=== PATIENT | female | born 1945 | race Caucasian/White ===

== ENCOUNTER 2024-05-01 09:42 | Inpatient (IN) ==
--- NOTE | 2024-05-01 11:16 | Emergency Department Note ---
Impression & Plan Closed intertrochanteric fracture of left hip, Vertigo, Fracture in accidental fall ED Provider Note NAME: HOWARD COLLINS AGE: 78 SEX: F : 1945 ARRIVES VIA: Walk-In INFORMANT: Patient ED PROVIDER(S): uLther Gu MD CHIEF COMPLAINT: vertigo, n/v PLAN: Disposition: Admit MEDICAL DECISION MAKING: The patient is a pleasant 78-year-old woman with a past medical history of chronic/recurring vertigo, right ear tinnitus, hypertension, hyperlipidemia, remote history of meningioma resection, paroxysmal atrial fibrillation on Xarelto, MARY BETH who presents to the emergency department via walk-in accompanied by her for flare of vertigo over the past several weeks where she has experienced room spinning and nausea and vomiting which became worse today. She denies any falls. She reports having some loose stool but denies any frequent diarrhea. She denies any cough or congestion. She denies chest pain or shortness of breath. She denies any headache but has had flare of chronic neck pain over the same period of time. She denies any recent chiropractic manipulation or massage. On evaluation the patient is in no acute distress, afebrile with blood pressure in the 160s/80s and vital signs otherwise stable. She appears clinically dry. She exhibits unilateral horizontal nystagmus to the left. She otherwise exhibits no focal neurologic deficits. EKG without overt acute ischemia. CXR negative for acute cardiopulmonary process per my personal preliminary review/interpretation. WBC, H/H and platelets within normal limits. Chemistry without metabolic acidosis. Electrolytes and LFTs unremarkable. High-sensitivity troponin 4.1, within normal limits Respiratory BioFire was negative. CT of the head and CT of the head neck were performed and were negative for ICH ischemia or severe narrowing occlusion of large vessels. Patient was treated with IVF hydration, anti-emetics, as well as diphenhydramine and dexamethasone for vertigo/labyrinthitis. Unfortunately, following CT imaging the patient was using the bathroom, escorted by her RN. The patient had requested from RN warm blankets and in the brief interval she get these the patient had somehow fallen off of the toilet onto her left hip which appeared deformed on my reassessment with shortening. She reports numbness and tingling but has SILT. Distal PMS intact. Head is atraumatic. Denies Head strike or LOC. Neck without midline tenderness to palpation or step- offs. Plain films subsequently demonstrate acute left hip intertrochanteric fracture. Upon reassessment following improved pain control with Dilaudid patient did also exhibit some point tenderness of the left anterior chest wall without bony crepitus. Left rib series was negative for overt displaced fracture or PTX per my preliminary interpretation. Case was discussed with Dr. Segovia, admitting resident with Dr. Gonzalez, [facility] hospitalist who will evaluate the patient for admission. Case discussed with Dr. Coburn, orthopedic surgery. Plan for OR tomorrow morning. Appreciate consultation. Admitting team updated. Formal Rib series report describes subtle cortical irregularly with overtly present rib fracture. Further management per admitting team. Triage Nursing notes reviewed and agree them. Prior/external medical records reviewed Vital Signs: reviewed Differential diagnosis: Benign positional vertigo, dehydration, hypovolemia, anemia, tumor, infection, hypoglycemia, electrolyte abnormalities, cardiac sources, intracerebral event, toxicologic, neurologic, as well as other pathologies. ER treatment provided: See below. Diagnostics interpreted by me: ECG: Normal sinus rhythm, no ectopy, no overt ST elevation or depression. Cardiac Monitoring: An order for continuous cardiac monitoring was placed and demonstrated normal sinus rhythm, 83 bpm, no ectopy. Laboratory studies: See below Imaging studies: See below Consultation(s): Dr. Coburn, Orthopedic surgery. Dr. Segovia, admitting resident with Dr. Gonzalez, [facility] hospitalist. HPI: The patient is a pleasant 78-year-old woman with a past medical history of chronic/recurring vertigo, right ear tinnitus, hypertension, hyperlipidemia, remote history of meningioma resection, paroxysmal atrial fibrillation on Xarelto, MARY BETH who presents to the emergency department via walk-in accompanied by her for flare of vertigo over the past several weeks where she has experienced room spinning and nausea and vomiting which became worse today. She denies any falls. She reports having some loose stool but denies any frequent diarrhea. She denies any cough or congestion. She denies chest pain or shortness of breath. She denies any headache but has had flare of chronic neck pain over the same period of time. She denies any recent chiropractic manipulation or massage. ROS: See above HPI for pertinent positives & negatives. A total of 10 systems reviewed and were otherwise negative. VITALS:See Below PHYSICAL EXAMINATION: GENERAL: Awake, alert, fatigued-appearing, in no distress HENT: Normocephalic, atraumatic. Oropharynx with dry mucous membranes and otherwise unremarkable. EYES: Normal conjunctiva. Sclera non-icteric. Unilateral horizontal nystagmus to the left. NECK: Supple. No nuchal rigidity. FROM. No JVD. No bruits. RESPIRATORY: Clear to auscultation. CARDIAC: Regular rate, normal rhythm. Extremities warm and well perfused. Pulses equal. ABDOMEN: Soft, non-distended. No tenderness to palpation. No rebound or guarding. No masses. MUSCULOSKELETAL: Chest examination reveals no tenderness. The back is symmetrical on inspection without obvious abnormality. There is no CVA tenderness to palpation. No joint edema. LOWER EXTREMITIES: Calves are equal size bilaterally and non-tender. No edema. No discoloration. NEURO: Cranial nerves II-XII grossly intact. 5/5 strength and SILT x 4 extremities. Cerebellar function intact including [id number], alternating palms, [id number]. SKIN: No rash or jaundice noted. Luther Gu MD Past Med/Surg History Problem List (Updated 05/02/24 @ 07:06 by Luther Gu MD) Vertigo (Acute) Closed intertrochanteric fracture of left hip (Acute) Fracture in accidental fall (Acute) COVID-19 (Acute) Palpitations Sleep apnea Dyslipidemia Hypertension Syncope and collapse Medical History Anticoagulant long-term use Paroxysmal atrial fibrillation Factor V Leiden Recurrent deep vein thrombosis (DVT) Social History Smoking Status: Never smoker Hx Alcohol Use: No Hx Substance Use: No Preferred Language: Amharic Communication Ability: Effective Beliefs That Will Affect Care: None Current Living Situation: Spouse Feels Safe at Home: Yes Safety Concerns: Feels Safe At This Time Allergies Allergies Allergy/AdvReac Type Severity Reaction Status Date / Time bee venom protein (honey bee) Allergy Severe Anaphylaxis Verified 03/20/24 08:47 codeine AdvReac Abdominal Verified 05/02/24 05:10 Pain Home Meds Home Medications Medication Instructions Recorded Confirmed albuterol sulfate 90 mcg/actuation 2 puff inhalation Q6H PRN sob 11/11/23 05/01/24 aerosol inhaler atorvastatin 20 mg tablet 20 mg PO UD 11/11/23 05/01/24 cholecalciferol (vitamin D3) 10 10 mcg PO DAILY 11/11/23 05/01/24 mcg (400 unit) capsule coenzyme Q10 75 mg capsule (Ultra 75 mg PO DAILY 11/11/23 05/01/24 CoQ10) diazepam 5 mg tablet 5 mg PO BID PRN Vertigo 11/11/23 05/01/24 lorazepam 0.5 mg tablet 0.5 mg PO UD PRN Other 11/11/23 05/01/24 losartan 25 mg tablet 25 mg PO UD 11/11/23 05/01/24 mecobalamin (vitamin B12) 1,000 1,000 mcg PO DAILY 11/11/23 05/01/24 mcg lozenges omeprazole 20 mg capsule,delayed 20 mg PO DAILY 11/11/23 05/01/24 release rivaroxaban 20 mg tablet (Xarelto) 20 mg PO DAILY 11/11/23 05/01/24 zinc acetate 50 mg (zinc) capsule 50 mg PO DAILY 11/11/23 05/01/24 Previous Rx's Medication Instructions Recorded meclizine 12.5 mg tablet 12.5 mg PO TID PRN dizziness #20 01/26/24 tabs ondansetron 4 mg disintegrating 4 mg PO Q8H PRN nausea and 01/26/24 tablet vomiting #30 tabs Results & Data (ED) Vital Signs Vital Signs - 24 hr 05/01/24 10:16 05/01/24 11:40 05/01/24 13:27 Temperature 36.6 C Temperature Source Temporal Artery Scan Pulse Rate 65 Pulse Rate [Left Finger] 65 92 H Respiratory Rate 16 16 26 H Respiratory Effort / Characteristics Non-Labored Spontaneous Respiratory Depth Normal Respiratory Pattern Regular Blood Pressure 164/83 H Blood Pressure [Left Arm] 159/76 H 172/96 H Blood Pressure Mean 110 Blood Pressure Mean [Left Arm] 103 121 Blood Pressure Position [Left Arm] Pulse Oximetry 96 96 98 Oxygen Delivery Method Room Air Sepsis Recent Fever Within 48 Hours No Sepsis New/Unexplained Change in Mental Status No Sepsis Action Taken by Nursing No Action Required 05/01/24 15:10 Temperature Temperature Source Pulse Rate Pulse Rate [Left Finger] 62 Respiratory Rate 20 Respiratory Effort / Characteristics Respiratory Depth Respiratory Pattern Blood Pressure Blood Pressure [Left Arm] 176/80 H Blood Pressure Mean Blood Pressure Mean [Left Arm] 112 Blood Pressure Position [Left Arm] Lying Pulse Oximetry 94 Oxygen Delivery Method Sepsis Recent Fever Within 48 Hours Sepsis New/Unexplained Change in Mental Status Sepsis Action Taken by Nursing Laboratory Data Attestation: I reviewed the patient's lab results. 05/01/24 10:50 05/01/24 10:50 Lab Results 05/01/24 05/01/24 Range/Units 10:50 11:50 WBC 5.61 (4.8-10.8) K/ul RBC 4.69 (4.20-5.40) M/uL Hgb 13.3 (12.0-16.0) g/dl Hct 40.7 (37.0-47.0) % MCV 86.8 (80.0-100.0) fL MCH 28.4 (25.0-34.0) pg MCHC 32.7 (32.0-36.0) g/dL RDW Std Deviation 44.7 (36.4-46.3) fL RDW Coeff of Artemio 14.1 (11.5-14.5) % Plt Count 247 (130-400) K/uL MPV 10.0 (9.4-12.4) fL Immature Gran % (Auto) 0.4 % Neut % (Auto) 67.9 % Lymph % (Auto) 21.0 % [place] % (Auto) 9.1 % Eos % (Auto) 0.7 % Baso % (Auto) 0.9 % Neut # (Auto) 3.81 (1.40-6.50) K/uL Lymph # (Auto) 1.18 L (1.20-3.40) K/uL [place] # (Auto) 0.51 (0.11-0.59) K/uL Eos # (Auto) 0.04 (0.00-0.50) K/uL Baso # (Auto) 0.05 (0.00-0.20) K/uL Immature Gran # (Auto) 0.02 (0.01-0.20) K/uL PT 11.3 (9.0-12.0) Seconds INR 1.0 (0.9-1.1) APTT 32 H (21-31) Seconds PTT Ratio 1.2 Sodium 137 (136-145) mmol/L Potassium 4.0 (3.5-5.1) mmol/L Chloride 103 (98-107) mmol/L Carbon Dioxide 31 (21-32) mmol/L Anion Gap 3 (3-11) BUN 12 (6-23) mg/dl Creatinine 0.70 (0.6-1.2) mg/dl Est Cr Clr Drug Dosing 62.0 ml/min eGFR 87.37 BUN/Creatinine Ratio 17.1 (10-20) Glucose 97 (70-99(Fasting)) mg/dl Calcium 9.5 (8.6-10.3) mg/dl Phosphorus 4.2 (2.5-4.9) mg/dl Magnesium 2.0 (1.7-2.4) mg/dl Total Bilirubin 0.8 (0.2-1.0) mg/dl AST 13 (13-39) U/L ALT 11 (7-52) U/L Alkaline Phosphatase 89 (34-104) U/L Troponin I High Sens 4.1 (0-14) pg/ml Total Protein 6.5 (6.0-8.3) gm/dl Albumin 4.0 (3.4-5.0) gm/dl Globulin 2.5 (2.5-4.0) gm/dl Albumin/Globulin Ratio 1.6 (0.9-2) TSH 1.267 (0.300-4.500) uIu/ml Adenovirus (PCR) Not Detected (NotDetected) B. pertussis DNA (PCR) Not Detected (NotDetected) B.parapertussis DNA PCR Not Detected (NotDetected) C. pneumoniae DNA (PCR) Not Detected (NotDetected) Coronavirus OC43 (PCR) Not Detected (NotDetected) Coronavirus HKU1 (PCR) Not Detected (NotDetected) Coronavirus 229E (PCR) Not Detected (NotDetected) SARS-CoV-2 (PCR) Not Detected (NotDetected) Coronavirus NL63 (PCR) Not Detected (NotDetected) Human Metapneumovir PCR Not Detected (NotDetected) Influenza Type A (PCR) Not Detected (NotDetected) Influenza Type B (PCR) Not Detected (NotDetected) M. pneumoniae (PCR) Not Detected (NotDetected) Parainfluenza 1 (PCR) Not Detected (NotDetected) Parainfluenza 2 (PCR) Not Detected (NotDetected) Parainfluenza 3 (PCR) Not Detected (NotDetected) Parainfluenza 4 (PCR) Not Detected (NotDetected) RSV (PCR) Not Detected (NotDetected) Entero/Rhino (PCR) Not Detected (NotDetected) Administered Medications Hydromorphone HCl (Hydromorphone Inj 0.5 Mg/0.5 Ml Syr) 0.5 mg IV Q1H PRN PRN Reason: Severe Pain (Rating 7,8,9,10) Stop: 05/15/24 16:33 Last Admin: 05/02/24 05:10 Dose: 0.5 mg Documented By: Admin: 05/01/24 19:50 Dose: 0.5 mg Documented By: Admin: 05/01/24 16:46 Dose: 0.5 mg Documented By: DORINA Discontinued Medications Dexamethasone Sodium Phosphate (DexamethasonePf 10 Mg/Ml Vial) 10 mg IV NOW ONE Stop: 05/01/24 12:15 Last Admin: 05/01/24 12:41 Dose: 10 mg Documented By: ARNULFO Diphenhydramine HCl (Diphenhydramine 50 Mg/Ml Vial) 12.5 mg IV NOW STA Stop: 05/01/24 12:15 Last Admin: 05/01/24 12:41 Dose: 12.5 mg Documented By: ARNULFO Hydromorphone HCl (Hydromorphone Inj 0.5 Mg/0.5 Ml Syr) Confirm Administered Dose 0.5 mg .ROUTE .STK-MED ONE Stop: 05/01/24 13:43 Last Admin: 05/01/24 13:44 Dose: Not Given Documented By: Hydromorphone HCl (Hydromorphone Inj 0.5 Mg/0.5 Ml Syr) 0.5 mg IV NOW STA Stop: 05/01/24 13:43 Last Admin: 05/01/24 13:45 Dose: 0.5 mg Documented By: Sodium Chloride (Nss) 1,000 mls @ 999 mls/hr IV .Q1H1M ONE Stop: 05/01/24 12:14 Last Infusion: 05/01/24 12:48 Dose: Infused Documented By: Admin: 05/01/24 11:47 Dose: 999 mls/hr Documented By: ARNULFO Famotidine (Pepcid 20mg Iv Push) 20 mg in 5 mls @ 2.5 mls/min IV NOW STA Stop: 05/01/24 11:15 Last Admin: 05/01/24 11:47 Dose: 2.5 mls/min Documented By: ARNULFO Promethazine HCl (Phenergan) 6.25 mg in 50.25 mls @ 201 mls/hr IV NOW STA Stop: 05/01/24 12:28 Last Infusion: 05/01/24 12:58 Dose: Infused Documented By: Admin: 05/01/24 12:43 Dose: 201 mls/hr Documented By: ARNULFO Acetaminophen (Ofirmev) 1,000 mg in 100 mls @ 400 mls/hr IV NOW STA Stop: 05/01/24 12:30 Last Infusion: 05/01/24 13:41 Dose: Infused Documented By: Admin: 05/01/24 13:26 Dose: 400 mls/hr Documented By: ARNULFO Ioversol (Optiray 320 125ml) 121 ml IV ONCE ONE Stop: 05/01/24 12:49 Last Admin: 05/01/24 12:48 Dose: 121 ml Documented By: AUBREY Meclizine HCl (Meclizine Hcl 25 Mg Tab) 25 mg PO NOW STA Stop: 05/01/24 20:06 Last Admin: 05/01/24 20:12 Dose: 25 mg Documented By: DORINA Morphine Sulfate (Morphine Sulfate 4 Mg/Ml 1 Ml Carp\\Vial) Confirm Administered Dose 4 mg .ROUTE .STK-MED ONE Stop: 05/01/24 13:32 Last Admin: 05/01/24 13:44 Dose: Not Given Documented By: Morphine Sulfate (Morphine Sulfate 4 Mg/Ml 1 Ml Carp\\Vial) 4 mg IV NOW STA Stop: 05/01/24 13:33 Last Admin: 05/01/24 15:12 Dose: Not Given Documented By: ARNULFO Ondansetron HCl (Ondansetron Inj 2 Mg/Ml 2 Ml Vial) 4 mg IV NOW STA Stop: 05/01/24 11:15 Last Admin: 05/01/24 11:48 Dose: 4 mg Documented By: ARNULFO Imaging Data Radiologist's Impression: Ribs w/Chest X-Ray 05/01/24 15:52 EXAM: XR ribs LT min 2V w [id number] CLINICAL HISTORY: Pain fall TECHNIQUE: X-ray images of the left ribs were obtained in [PA/AP, lateral, and oblique projections] including chest AP view. COMPARISON: none. FINDINGS: Ribs: A subtle cortical irregularity is seen involving the left 5th rib, which could be an undisplaced fracture for correlation with clinical data. Two sclerotic lines are seen involving the left 10th rib for correlation with clinical data. Chest Wall: The soft tissues of the chest wall appear unremarkable. No evidence of subcutaneous emphysema or soft tissue masses. Lungs and Pleura: The lung ontiveros are clear with no evidence of pneumothorax or pleural effusion. No pulmonary infiltrates or masses identified. IMPRESSION: 1. A subtle cortical irregularity is seen involving the left 5th rib. Questionable undisplaced fracture for correlation with clinical data. 2. Two sclerotic lines are seen involving the left 10th rib for correlation with clinical data. (Disclaimer: "A subtle bone abnormality or fracture may not be readily apparent on x-rays, thus clinical correlation and further imaging including follow-up CT, MRI, or follow-up x-rays are advised as needed"). Electronically signed by Swetha Harmon 05-01-2024 7:00 PM Chest X-Ray 05/01/24 10:44 XR chest 1V not portable CLINICAL HISTORY: dizziness COMPARISON STUDY: 01/26/2024 FINDINGS: Heart size and pulmonary vasculature are normal. No effusion, consolidation, or pneumothorax. IMPRESSION: No acute findings. ACT 112: Negative or not required by law. Electronically signed by: Dejan Elizabeth M.D. 05/01/2024 11:[address] 05/01/24 12:16 CT OF THE HEAD WITHOUT CONTRAST CLINICAL HISTORY: Vertigo. COMPARISON STUDY: Head CT January 26, 2024. TECHNIQUE: Helical axial images of the head were obtained without IV contrast. Automated exposure control was utilized for the study. A dose lowering technique was utilized adhering to the principles of ALARA. FINDINGS: No acute intracranial hemorrhage, midline shift or mass effect is present. The ventricular system is unremarkable. The basal cisterns are patent. No extra-axial collections are present. There are no findings to suggest acute dural sinus thrombosis or acute territorial infarct. Stable findings following the left occipital craniectomy. Encephalomalacia within the left cerebellar hemisphere is unchanged. The appearance of the brain is unchanged. IMPRESSION: No acute intracranial findings. No change in appearance of the brain. ACT 112: Negative or not required by law. Electronically signed by: Pelon Gay M.D. 05/01/2024 1:12 PM Head CTA 05/01/24 12:16 CT angio head w con, CT angio neck with con CLINICAL HISTORY: 78 years-old Female with vertigo. Acute vertigo with strokelike symptoms, nausea and vomiting COMPARISON STUDY: Head CT of same day and also 01/26/2024. TECHNIQUE: Following the IV administration of 121 cc of Optiray, CT angiogram of the head and neck was performed from the aortic arch to the skull apex. Images are reviewed in the axial, sagittal, and coronal planes. 3-D MIPS images are created and assessed. IV contrast was administered without complication. All measurements were obtained according to NASCET criteria. A dose lowering technique was utilized adhering to the principles of ALARA. CT DOSE: 1105.96 mGy.cm FINDINGS: CT BRAIN: Dictated separately. 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 Chronic lucent focus of the left parietal calvarium. CT ANGIOGRAM OF THE HEAD AND NECK: Three-vessel morphology of the thoracic aortic arch. Patency of the innominate and image subclavian arteries. The common carotid arteries are patent. Atherosclerosis of the carotid bulbs without significant stenosis. Imaged bilateral internal carotid arteries are patent. The bilateral anterior and middle cerebral arteries are also patent. The vertebrobasilar system and posterior cerebral arteries are widely patent. There is no aneurysm, high-grade stenosis, or proximal branch occlusion identified. Dural sinuses appear patent. Lung apices are clear. Unremarkable soft tissues. Degenerative changes of the cervical spine. Prior bilateral repair. IMPRESSION: 1. Unremarkable CTA of the head and neck. 2. Please refer to the head CT of same day for additional findings. ACT 112: Negative or not required by law. The above report was generated using voice recognition software. It may contain grammatical, syntax or spelling errors. Electronically signed by: Cirilo Hamilton M.D. 05/01/2024 1:19 PM Neck CTA 05/01/24 12:16 CT angio head w con, CT angio neck with con CLINICAL HISTORY: 78 years-old Female with vertigo. Acute vertigo with strokelike symptoms, nausea and vomiting COMPARISON STUDY: Head CT of same day and also 01/26/2024. TECHNIQUE: Following the IV administration of 121 cc of Optiray, CT angiogram of the head and neck was performed from the aortic arch to the skull apex. Images are reviewed in the axial, sagittal, and coronal planes. 3-D MIPS images are created and assessed. IV contrast was administered without complication. All measurements were obtained according to NASCET criteria. A dose lowering technique was utilized adhering to the principles of ALARA. CT DOSE: 1105.96 mGy.cm FINDINGS: CT BRAIN: Dictated separately. 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 Chronic lucent focus of the left parietal calvarium. CT ANGIOGRAM OF THE HEAD AND NECK: Three-vessel morphology of the thoracic aortic arch. Patency of the innominate and image subclavian arteries. The common carotid arteries are patent. Atherosclerosis of the carotid bulbs without significant stenosis. Imaged bilateral internal carotid arteries are patent. The bilateral anterior and middle cerebral arteries are also patent. The vertebrobasilar system and posterior cerebral arteries are widely patent. There is no aneurysm, high-grade stenosis, or proximal branch occlusion identified. Dural sinuses appear patent. Lung apices are clear. Unremarkable soft tissues. Degenerative changes of the cervical spine. Prior bilateral repair. IMPRESSION: 1. Unremarkable CTA of the head and neck. 2. Please refer to the head CT of same day for additional findings. ACT 112: Negative or not required by law. The above report was generated using voice recognition software. It may contain grammatical, syntax or spelling errors. Electronically signed by: Cirilo Hamilton M.D. 05/01/2024 1:19 PM Hip/Pelvis X-Ray 05/01/24 13:42 XR hip LT 2V w pelvis CLINICAL HISTORY: pain fall COMPARISON: None FINDINGS: There is an acute mildly displaced intertrochanteric fracture proximal left femur with mild proximal migration of the distal fragment. There is an old healed femoral shaft fracture on the left. No other fracture seen. IMPRESSION: Acute fracture proximal left femur. ACT 112: Negative or not required by law. Electronically signed by: Dejan Elizabeth M.D. 05/01/2024 3:15 PM Knee X-Ray 05/01/24 13:42 XR knee LT 1 or 2V routine CLINICAL HISTORY: pain fall COMPARISON: None FINDINGS: There is severe osteoarthritis. There is osteopenia. There is an old healed fracture at the shaft of the left femur. No acute fracture or dislocation seen of the left knee. IMPRESSION: No acute fracture seen. ACT 112: Negative or not required by law. Electronically signed by: Dejan Elizabeth M.D. 05/01/2024 3:16 PM Ribs w/Chest X-Ray 05/01/24 15:52 EXAM: XR ribs LT min 2V w [id number] CLINICAL HISTORY: Pain fall TECHNIQUE: X-ray images of the left ribs were obtained in [PA/AP, lateral, and oblique projections] including chest AP view. COMPARISON: none. FINDINGS: Ribs: A subtle cortical irregularity is seen involving the left 5th rib, which could be an undisplaced fracture for correlation with clinical data. Two sclerotic lines are seen involving the left 10th rib for correlation with clinical data. Chest Wall: The soft tissues of the chest wall appear unremarkable. No evidence of subcutaneous emphysema or soft tissue masses. Lungs and Pleura: The lung ontiveros are clear with no evidence of pneumothorax or pleural effusion. No pulmonary infiltrates or masses identified. IMPRESSION: 1. A subtle cortical irregularity is seen involving the left 5th rib. Questionable undisplaced fracture for correlation with clinical data. 2. Two sclerotic lines are seen involving the left 10th rib for correlation with clinical data. (Disclaimer: "A subtle bone abnormality or fracture may not be readily apparent on x-rays, thus clinical correlation and further imaging including follow-up CT, MRI, or follow-up x-rays are advised as needed"). Electronically signed by Swetha Harmon 05-01-2024 7:00 PM Discharge Plan Visit Data Chief Complaint: Illness Stated Complaint: WEAK, VOMITING, DIZZY ED Provider: Luther Gu Discharge Problem: Closed intertrochanteric fracture of left hip, Vertigo, Fracture in accidental fall Patient Disposition: Admitted As Inpatient Discharge Instructions Interventions: ED Discharge Assessment Last Done: 05/01/24 20:17 Discharge Problem: Closed intertrochanteric fracture of left hip Qualifiers: Encounter type: initial encounter Fracture alignment: displaced Qualified Code(s): S72.142A - Displaced intertrochanteric fracture of left femur, initial encounter for closed fracture
[2024-05-01 11:18] LABS: Basophils # (auto) 0.05 K/uL (0.00-0.20); Basophils % (auto) 0.9 %; Eosinophils # (auto) 0.04 K/uL (0.00-0.50); Eosinophils % (auto) 0.7 %; Hematocrit (blood only) 40.7 % (37.0-47.0); Hemoglobin 13.3 g/dl (12.0-16.0); Immature Granulocytes # (auto) 0.02 K/uL (0.01-0.20); Immature Granulocytes % (auto) 0.4 %; Lymphocytes # (auto) 1.18 K/uL (1.20-3.40); Mean Corpuscular Hemoglobin 28.4 pg (25.0-34.0); Mean Corpuscular Hgb Conc 32.7 g/dL (32.0-36.0); Mean Corpuscular Volume 86.8 fL (80.0-100.0); Monocytes # (auto) 0.51 K/uL (0.11-0.59); Monocytes % (auto) 9.1 %; Neutrophils # (auto) 3.81 K/uL (1.40-6.50); Neutrophils % (auto) 67.9 %; Platelet Count 247 K/uL (130-400); RDW Coefficient of Variation 14.1 % (11.5-14.5); RDW Standard Deviation 44.7 fL (36.4-46.3); Red Blood Count 4.69 M/uL (4.20-5.40); White Blood Count 5.61 K/ul (4.8-10.8)
--- NOTE | 2024-05-01 11:20 | XRay Report ---
XR chest 1V not portable CLINICAL HISTORY: dizziness COMPARISON STUDY: 01/26/2024 FINDINGS: Heart size and pulmonary vasculature are normal. No effusion, consolidation, or pneumothora x. IMPRESSION: No acute findings. ACT 112: Negative or not required by law. Electronically signed by: Dejan Elizabeth M.D. 05/01/2024 11:18 AM
[2024-05-01 11:31] LABS: Albumin Globulin Ratio 1.6 (0.9-2); BUN Creatinine Ratio 17.1 (10-20); Bilirubin,Total 0.8 mg/dl (0.2-1.0); Calcium 9.5 mg/dl (8.6-10.3); Globulin 2.5 gm/dl (2.5-4.0); Total Protein 6.5 gm/dl (6.0-8.3)
[2024-05-01 11:41] LABS: Phosphorus 4.2 mg/dl (2.5-4.9)
[2024-05-01 11:47] LABS: Partial Thromboplastin Ratio 1.2; Partial Thromboplastin Time 32 Seconds (21-31); Prothrombin Time 11.3 Seconds (9.0-12.0)
[2024-05-01] MEDS: SODIUM CHLORIDE 0.9% 1,000 ML IV ONE (11:47)
[2024-05-01] MEDS: FAMOTIDINE 20MG IV PUSH 20 MG/5 ML SYR IV STA (11:47)
[2024-05-01] MEDS: ONDANSETRON INJ 2 MG/ML 2 ML VIAL IV STA (11:48)
[2024-05-01 11:49] LABS: Troponin I High Sensitivity 4.1 pg/ml (0-14)
[2024-05-01 11:58] LABS: Thyroid Stimulating Hormone 1.267 uIu/ml (0.300-4.500)
[2024-05-01] MEDS: diphenhydrAMINE 50 MG/ML VIAL IV STA (12:41)
[2024-05-01] MEDS: dexAMETHasone**PF** 10 MG/ML VIAL IV ONE (12:41)
[2024-05-01] MEDS: PROMETHAZINE 6.25 MG/50.25 ML BAG IV STA (12:43)
[2024-05-01] MEDS: OPTIRAY 320 125ml IV ONE (12:48)
--- NOTE | 2024-05-01 13:14 | CT Scan Report ---
CT OF THE HEAD WITHOUT CONTRAST CLINICAL HISTORY: Vertigo. COMPARISON STUDY: Head CT January 26, 2024. TECHNIQUE: Helical axial images of the head were obtained without IV contrast. Automated exposure con trol was utilized for the study. A dose lowering technique was utilized adhering to the principles o f ALARA. FINDINGS: No acute intracranial hemorrhage, midline shift or mass effect is present. The ventricular system is unremarkable. The basal cisterns are patent. No extra-axial collections are present. There are no findings to suggest acute dural sinus thrombosis or acute territorial infarct. Stable findings following the left occipital craniectomy. Encephalomalacia within the left cerebellar hemisphere is unchanged. The appearance of the brain is unchanged. IMPRESSION: No acute intracranial findings. No change in appearance of the brain. ACT 112: Negative or not required by law. Electronically signed by: Pelon Gay M.D. 05/01/2024 1:12 PM
--- NOTE | 2024-05-01 13:20 | CT Scan Report ---
CT angio head w con, CT angio neck with con CLINICAL HISTORY: 78 years-old Female with vertigo. Acute vertigo with strokelike symptoms, nausea and vomiting COMPARISON STUDY: Head CT of same day and also 01/26/2024. TECHNIQUE: Following the IV administration of 121 cc of Optiray, CT angiogram of the head and neck wa s performed from the aortic arch to the skull apex. Images are reviewed in the axial, sagittal, and c oronal planes. 3-D MIPS images are created and assessed. IV contrast was administered without complic ation. All measurements were obtained according to NASCET criteria. A dose lowering technique was uti lized adhering to the principles of ALARA. CT DOSE: 1105.96 mGy.cm FINDINGS: CT BRAIN: Dictated separately. 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 Chronic lucent focus of the left parietal calvarium. CT ANGIOGRAM OF THE HEAD AND NECK: Three-vessel morphology of the thoracic aortic arch. Patency of the innominate and image subclavian a rteries. The common carotid arteries are patent. Atherosclerosis of the carotid bulbs without signifi cant stenosis. Imaged bilateral internal carotid arteries are patent. The bilateral anterior and midd le cerebral arteries are also patent. The vertebrobasilar system and posterior cerebral arteries are widely patent. There is no aneurysm, high-grade stenosis, or proximal branch occlusion identified. Du ral sinuses appear patent. Lung apices are clear. Unremarkable soft tissues. Degenerative changes of the cervical spine. Prior b ilateral repair. IMPRESSION: 1. Unremarkable CTA of the head and neck. 2. Please refer to the head CT of same day for additional findings. ACT 112: Negative or not required by law. The above report was generated using voice recognition software. It may contain grammatical, syntax o r spelling errors. Electronically signed by: Cirilo Hamilton M.D. 05/01/2024 1:19 PM
[2024-05-01] MEDS: ACETAMINOPHEN 1,000 MG/100 ML VIAL IV STA (13:26)
[2024-05-01] MEDS: MoRPHine SULFATE 4 MG/ML 1 ML CARP\\VIAL ONE (13:44)
[2024-05-01] MEDS: HYDROmorphone INJ 0.5 MG/0.5 ML SYR ONE (13:44)
[2024-05-01] MEDS: HYDROmorphone INJ 0.5 MG/0.5 ML SYR IV STA (13:45)
[2024-05-01 13:59] LABS: Adenovirus PCR Not Detected (NotDetected); Bordetella parapertussis PCR Not Detected (NotDetected); Bordetella pertussis PCR Not Detected (NotDetected); Chlamydia pneumoniae PCR Not Detected (NotDetected); Coronavirus 229E PCR Not Detected (NotDetected); Coronavirus CoV-2 (COVID19)PCR Not Detected (NotDetected); Coronavirus HKU1 PCR Not Detected (NotDetected); Coronavirus NL63 PCR Not Detected (NotDetected); Coronavirus OC43PCR Not Detected (NotDetected); Human Metapneumovirus PCR Not Detected (NotDetected); Influenza A PCR Not Detected (NotDetected); Influenza B PCR Not Detected (NotDetected); Mycoplasma pneumoniae PCR Not Detected (NotDetected); Parainfluenza Virus 1 PCR Not Detected (NotDetected); Parainfluenza Virus 2 PCR Not Detected (NotDetected); Parainfluenza Virus 3 PCR Not Detected (NotDetected); Parainfluenza Virus 4 PCR Not Detected (NotDetected); Respiratory Syncytial VirusPCR Not Detected (NotDetected); Rhinovirus/Enterovirus PCR Not Detected (NotDetected)
[2024-05-01] MEDS: MoRPHine SULFATE 4 MG/ML 1 ML CARP\\VIAL IV STA (15:12)
--- NOTE | 2024-05-01 15:16 | XRay Report ---
XR hip LT 2V w pelvis CLINICAL HISTORY: pain fall COMPARISON: None FINDINGS: There is an acute mildly displaced intertrochanteric fracture proximal left femur with mil d proximal migration of the distal fragment. There is an old healed femoral shaft fracture on the lef t. No other fracture seen. IMPRESSION: Acute fracture proximal left femur. ACT 112: Negative or not required by law. Electronically signed by: Dejan Elizabeth M.D. 05/01/2024 3:15 PM
--- NOTE | 2024-05-01 15:17 | XRay Report ---
XR knee LT 1 or 2V routine CLINICAL HISTORY: pain fall COMPARISON: None FINDINGS: There is severe osteoarthritis. There is osteopenia. There is an old healed fracture at th e shaft of the left femur. No acute fracture or dislocation seen of the left knee. IMPRESSION: No acute fracture seen. ACT 112: Negative or not required by law. Electronically signed by: Dejan Elizabeth M.D. 05/01/2024 3:16 PM
[2024-05-01] MEDS ORDERED: HYDROmorphone INJ 0.5 MG/0.5 ML SYR IV PRN (16:34)
[2024-05-01] MEDS: HYDROmorphone INJ 0.5 MG/0.5 ML SYR IV PRN (16:46)
--- NOTE | 2024-05-01 16:53 | History & Physical Report ---
Date of Service May 01, 2024 Assessment & Plan (1) Fracture in accidental fall: (2) Paroxysmal atrial fibrillation: (3) Factor V Leiden: (4) Recurrent deep vein thrombosis (DVT): (5) Hypertension: Plan Pt is a 78 yo female with a past medical history of chronic episodic vertigo with L sided tinnitus and hearing loss, hx meningioma s/p [id number] years ago, paroxysmal afib s/p ablation in 2017and HTN who presents to the hospital on 05/01 for acute on chronic vertigo who fell off the toilet when into the ED and sustained a L sided femur fracture. #Fall with fracture - episode of fall from standing height in bathroom at ER with L sided femur fracture - L hip xray; Acute fracture proximal left femur, chest xray for L rib pain pending - femur fracture from standing height is unusual, suspect advanced osteoporosis, pt already on vitamin D - ortho consulted; recs pending - to consult PT/OT after ortho recs/possible surg #Vertigo - acute on chronic episode, ongoing for 30 years - no hx of diuretic use for this but has tried benzos with some relief - CT/CTA head on admission unremarkable - had compliance monitor on 01/2024; no notable correlation of symptoms with cardiac arrhythmias, offered longer duration monitor but pt declined - carotid duplex 12/2023; unremark - continue meclizine and zofran - postop maybe transition losartan to HCTZ #HTN - continue losartan #Hx Afib - she was symptomatic and cardioverted in 2017 - no episodes of afib noted so far this hospital stay #Hx DVTs #Hx factor V leiden - anticoag as noted below VTE prophylaxis: on rivaroxaban at home, on hold pending ortho recs for acute hip fracture but to restart after Diet: NPO pending ortho recs, recommend low salt when started for vertigo History of Present Illness Chief Complaint: Vertigo, fall with fracture Primary Care Provider: Meera Lee, Pt is a 78 yo female with a past medical history of chronic episodic vertigo with L sided tinnitus and hearing loss, hx meningioma s/p [id number] years ago, paroxysmal afib s/p ablation in 2017and HTN who presents to the hospital on 05/01 for acute on chronic vertigo who fell off the toilet when into the ED and sustained a L sided femur fracture. Pt states that initially she came in for worsening of her vertigo. Yesterday she felt her vertigo worsen with constant room spinning all day which is a bit better this morning but she came in for further eval. She states she has had vertigo for about 30 years at this point, initially happening once every few years but has increasingly over time become more frequent, now with an episode a week at least. She states that about 10 years ago she had surgery for a L sided meningioma removal but symptoms started before that and persisted after. She states that she has had vestibular testing and evaluations by numerous doctors with no answers. She states she saw a specialist in [facility] who treated a friend of hers with a surgery for menieres disease but states she does not have menieres. states that she may have symptoms more on days that she does not eat/drink much and when she vomits with these episodes she never vomits anything up. She has not passed on with these episodes. No recent URI illnesses. At home she takes meclizine, which initially years ago did help a lot but now, although it helps, it does not help as much and she can still have an episode and vomit despite meclizine and zofran. She was very recently started back on a benzo and did state that she took it twice recently and it did seem to resolve symptoms. She has near constant L sided tinnitus and hearing loss. In regards to the episode in the ER; she states she walked to the bathroom and felt fine but tried to sit down fast and states there was water or something on the toilet seat that made it slippery and so she slipped off of it and fell to her L side. She states right now if not moving she has minimal pain but with movement of the L leg the pain is excruciating. She has some L lateral chest pain at the mid thoracics mid axillary line as well. She did not pass out during the episode. No chest pain or SOB. Allergies Allergy/AdvReac Type Severity Reaction Status Date / Time bee venom protein (honey bee) Allergy Severe Anaphylaxis Verified 03/20/24 08:47 codeine AdvReac Unverified 03/20/24 08:47 Home Medications Medication Instructions Recorded Confirmed Type albuterol sulfate 90 mcg/actuation 2 puff inhalation Q6H PRN sob 11/11/23 05/01/24 History aerosol inhaler atorvastatin 20 mg tablet 20 mg PO UD 11/11/23 05/01/24 History cholecalciferol (vitamin D3) 10 10 mcg PO DAILY 11/11/23 05/01/24 History mcg (400 unit) capsule coenzyme Q10 75 mg capsule (Ultra 75 mg PO DAILY 11/11/23 05/01/24 History CoQ10) diazepam 5 mg tablet 5 mg PO BID PRN Vertigo 11/11/23 05/01/24 History lorazepam 0.5 mg tablet 0.5 mg PO UD PRN Other 11/11/23 05/01/24 History losartan 25 mg tablet 25 mg PO UD 11/11/23 05/01/24 History mecobalamin (vitamin B12) 1,000 1,000 mcg PO DAILY 11/11/23 05/01/24 History mcg lozenges omeprazole 20 mg capsule,delayed 20 mg PO DAILY 11/11/23 05/01/24 History release rivaroxaban 20 mg tablet (Xarelto) 20 mg PO DAILY 11/11/23 05/01/24 History zinc acetate 50 mg (zinc) capsule 50 mg PO DAILY 11/11/23 05/01/24 History meclizine 12.5 mg tablet 12.5 mg PO TID PRN dizziness #20 01/26/24 05/01/24 Rx tabs ondansetron 4 mg disintegrating 4 mg PO Q8H PRN nausea and 01/26/24 05/01/24 Rx tablet vomiting #30 tabs Past Med/Surg History Problem List (Updated 05/01/24 @ 17:19 by Alina Segovia DO) Fracture in accidental fall COVID-19 (Acute) Palpitations Sleep apnea Dyslipidemia Hypertension Syncope and collapse Medical History Anticoagulant long-term use Paroxysmal atrial fibrillation Factor V Leiden Recurrent deep vein thrombosis (DVT) Social History Smoking Status: Never smoker Preferred Language: Nicaraguan Feels Safe at Home: Yes Review of Systems Review of Systems: Per HPI. Physical Exam Physical Exam: General: Alert and oriented, no acute distress, HEENT: Normocephalic, moist oral mucosa, TMs wnl, Cardio: Regular rate and rhythm, no murmur, Resp: Lungs clear to auscultation b/l, no wheezes or rhonchi, GI: Soft and with some very mild diffuse discomfort, nondistended, bowel sounds active Skin: Warm, pink, dry, MSK: L sided mid thoracic axillary line tenderness to palpation without obvious deformity Results & Data Results & Data Vital Signs (Past 12 Hours) Vital Signs Temp Pulse Pulse Resp BP BP Pulse Ox 05/01/24 15:10 62 20 176/80 H 94 05/01/24 13:27 92 H 26 H 172/96 H 98 05/01/24 11:40 65 16 159/76 H 96 05/01/24 10:16 36.6 C 65 16 164/83 H 96 O2 Del Method 05/01/24 15:10 05/01/24 13:27 05/01/24 11:40 05/01/24 10:16 Room Air Resident Activity Tracking Resident Involvement: Resident Care Provided Care Provided: Adult Hospital Medicine
--- NOTE | 2024-05-01 19:01 | XRay Report ---
EXAM: XR ribs LT min 2V w [id number] CLINICAL HISTORY: Pain fall TECHNIQUE: X-ray images of the left ribs were obtained in [PA/AP, lateral, and oblique projections] including chest AP view. COMPARISON: none. FINDINGS: Ribs: A subtle cortical irregularity is seen involving the left 5th rib, which could be an undisplaced fracture for correlation with clinical data. Two sclerotic lines are seen involving the left 10th rib for correlation with clinical data. Chest Wall: The soft tissues of the chest wall appear unremarkable. No evidence of subcutaneous emphysema or soft tissue masses. Lungs and Pleura: The lung ontiveros are clear with no evidence of pneumothorax or pleural effusion. No pulmonary infiltrates or masses identified. IMPRESSION: 1. A subtle cortical irregularity is seen involving the left 5th rib. Questionable undisplaced fracture for correlation with clinical data. 2. Two sclerotic lines are seen involving the left 10th rib for correlation with clinical data. (Disclaimer: "A subtle bone abnormality or fracture may not be readily apparent on x-rays, thus clinical correlation and further imaging including follow-up CT, MRI, or follow-up x-rays are advised as needed"). Electronically signed by Swetha Harmon 05-01-2024 7:00 PM
[2024-05-01] MEDS ORDERED: POLYETHYLENE (MIRALAX) 17 GM PACK PO PRN (20:05)
[2024-05-01] MEDS ORDERED: ALBUTEROL HFA 8 GM INHALER INH PRN (20:05)
[2024-05-01] MEDS: MECLIZINE HCL 25 MG TAB PO STA (20:12)
--- NOTE | 2024-05-02 07:02 | Hospitalist Progress Note ---
Date of Service May 02, 2024 Assessment & Plan (1) Fracture in accidental fall: (2) Paroxysmal atrial fibrillation: (3) Factor V Leiden: (4) Recurrent deep vein thrombosis (DVT): (5) Hypertension: Plan Pt is a 78 yo female with a past medical history of chronic episodic vertigo with L sided tinnitus and hearing loss, hx meningioma s/p [id number] years ago, paroxysmal afib s/p ablation in 2017and HTN who presents to the hospital on 05/01 for acute on chronic vertigo who fell off the toilet when into the ED and sustained a L sided femur fracture. #Fall with fracture - episode of fall from standing height in bathroom at ER with L sided femur fracture - L hip xray; Acute fracture proximal left femur, chest xray for L rib pain; possible nondisplaced fracture of the 5th rib noted (will do supportive care for this) - femur fracture from fall at standing height is unusual, suspect advanced osteoporosis, pt already on vitamin D - ortho consulted; surgery for today for L hip fracture - to consult PT/OT after ortho recs/possible surg #Vertigo - acute on chronic episode, ongoing for 30 years - no hx of diuretic use for this but has tried benzos with some relief - CT/CTA head on admission unremarkable - had threat monitoring analyst on 01/2024; no notable correlation of symptoms with cardiac arrhythmias, offered longer duration monitor but pt declined - carotid duplex 12/2023; unremark - continue meclizine and zofran - postop maybe transition losartan to HCTZ #HTN - continue losartan #Hx Afib - she was symptomatic and cardioverted in 2017 - no episodes of afib noted so far this hospital stay #Hx DVTs #Hx factor V leiden - anticoag as noted below VTE prophylaxis: on rivaroxaban at home, on hold pending ortho recs for acute hip fracture but to restart after Diet: NPO pending ortho surg today, recommend low salt when started for vertigo Admission and Anticipated Discharge Date Admission Date: May 01, 2024 Supervising Physician Co-Signing Physician Notes Any exceptions will be noted below Patient was seen and examined independently I discussed the case with Alina Segovia PGY2 I reviewed pertinent past medical social family history and also the plan of care and agree with the plan of care. Patient was with good pain control was accompanied by her family pending upcoming surgical repair Card exam is regular lungs are clear leg was shortened and externally rotated capillary refills intact Mechanical fall with left femur fracture plans for intramedullary reynold, parenteral pain control Intractable recurrent vertigo, h/o meningioma, continue meclizine as outpt Any exceptions will be noted below Subjective Pt seen at bedside this morning. Daughters present along with . Pt appears pleasantly comfortable. She states her vertigo feels a little bit better today, not completely resolved but a bit better. Some nausea but no vomiting. She states her L ribs hurt from the fall yesterday but the pain is mild and mostly with moving the torso. She states the pain of the hip does not bother her unless she really starts to move it. No abdominal pain or vomiting. No chest pain or SOB. in the room anxious about her getting hip surgery lavonne and daughter also notes they are anxious for her to get the surgery done. Explained that she is on ortho's schedule but not a definitive time as she is an add on case. They are frustrated and note a sense of urgency but are understandable. Review of Systems Review of Systems: Per HPI. Physical Exam Physical Exam: General: Alert and oriented, no acute distress, HEENT: Normocephalic, moist oral mucosa, TMs wnl, Cardio: Regular rate and rhythm, no murmur, Resp: Lungs clear to auscultation b/l, no wheezes or rhonchi, GI: Soft and without discomfort, nondistended, bowel sounds active Skin: Warm, pink, dry, Results & Data Results & Data Vital Signs (Past 12 Hours) Vital Signs Pulse Pulse Resp BP Pulse Ox Pulse Ox O2 Del Method 05/02/24 06:00 74 16 150/71 H 93 Room Air 05/02/24 02:52 92 05/01/24 23:37 83 05/01/24 22:00 93 H 18 158/82 H 93 Room Air Resident Activity Tracking Resident Involvement: Resident Care Provided Care Provided: Adult Hospital Medicine
[2024-05-02 07:55] LABS: Basophils # (auto) 0.02 K/uL (0.00-0.20); Basophils % (auto) 0.3 %; Hematocrit (blood only) 36.2 % (37.0-47.0); Hemoglobin 11.8 g/dl (12.0-16.0); Immature Granulocytes # (auto) 0.02 K/uL (0.01-0.20); Immature Granulocytes % (auto) 0.3 %; Lymphocytes # (auto) 1.36 K/uL (1.20-3.40); Lymphocytes % (auto) 17.1 %; Mean Corpuscular Hemoglobin 28.2 pg (25.0-34.0); Mean Corpuscular Hgb Conc 32.6 g/dL (32.0-36.0); Mean Corpuscular Volume 86.6 fL (80.0-100.0); Mean Platelet Volume 9.7 fL (9.4-12.4); Monocytes # (auto) 0.91 K/uL (0.11-0.59); Monocytes % (auto) 11.5 %; Neutrophils # (auto) 5.63 K/uL (1.40-6.50); Neutrophils % (auto) 70.8 %; Platelet Count 249 K/uL (130-400); RDW Coefficient of Variation 14.3 % (11.5-14.5); RDW Standard Deviation 45.9 fL (36.4-46.3); Red Blood Count 4.18 M/uL (4.20-5.40); White Blood Count 7.94 K/ul (4.8-10.8)
[2024-05-02 08:27] LABS: BUN Creatinine Ratio 21.2 (10-20); Calcium 9.1 mg/dl (8.6-10.3); Creatinine Clr Calc Pharmacy 65.8 ml/min; Magnesium 1.9 mg/dl (1.7-2.4); Potassium 4.1 mmol/L (3.5-5.1)
[2024-05-02] MEDS: MECLIZINE 12.5 MG TAB PO PRN (09:13)
--- NOTE | 2024-05-02 09:14 | Orthopedic Consultation ---
Date of Service May 02, 2024 Assessment & Plan (1) Closed intertrochanteric fracture of left hip: Assessment: Intertrochanteric fracture of the left hip. Plan: I had a long discussion today with the patient about her left hip pathology with ample amount time for patient ask any questions stated concerns. All question concerns were answered patient satisfaction. At this point time, she is dealing with a left intertrochanteric hip fracture. This will require surgical fixation to get a good outcome after this fracture. I discussed the risk, benefits, and alternatives to TFN nail fixation with long nail in great detail with ample amount time for patient to ask any questions stated concerns. All question concerns were answered the patient satisfaction she wishes to proceed with the stated procedure. Her and her family are very adamant that they want Dr. Valente to perform her surgery today. She is currently scheduled to proceed with surgery with Dr. Valente today. She should remain n.p.o. at this time and on bedrest. She is medically optimized from hospitalist standpoint to proceed with surgery today. Postsurgical expectations were discussed today as well. Will proceed with surgery later this morning. History of Present Illness Reason for Consultation: . Left hip fracture Requesting Physician: . Attending Physician: Kane Gonzalez MD . Patient is an 78-year-old female who presented to the emergency department yesterday evening with vertigo symptoms. She was originally in the emergency department for her vertigo symptoms and unfortunately was using the bathroom whenever she fell off the toilet. After this fall, she had immediate onset of left hip pain. She was returned to her bed and was transferred to the x-ray suite where they completed an x-ray and found that she had a mildly displaced intertrochanteric hip fracture. Orthopedics was then consulted. Today, she notes that her pain is well-controlled at the present time with current pain analgesics regiment. She notes that discomfort is brought on with any sort of movement. She would rate her pain about a 10 out of 10 with movement. About a 6 out of 10 at rest at the present time. She denies any low back pain, distal extremity pain, numbness/ting, or paresthesias. She denies any other concerns a t this time. Allergies Allergy/AdvReac Type Severity Reaction Status Date / Time bee venom protein (honey bee) Allergy Severe Anaphylaxis Verified 03/20/24 08:47 codeine AdvReac Abdominal Verified 05/02/24 05:10 Pain Home Medications Medication Instructions Recorded Confirmed Type albuterol sulfate 90 mcg/actuation 2 puff inhalation Q6H PRN sob 11/11/23 05/01/24 History aerosol inhaler atorvastatin 20 mg tablet 20 mg PO UD 11/11/23 05/01/24 History cholecalciferol (vitamin D3) 10 10 mcg PO DAILY 11/11/23 05/01/24 History mcg (400 unit) capsule coenzyme Q10 75 mg capsule (Ultra 75 mg PO DAILY 11/11/23 05/01/24 History CoQ10) diazepam 5 mg tablet 5 mg PO BID PRN Vertigo 11/11/23 05/01/24 History lorazepam 0.5 mg tablet 0.5 mg PO UD PRN Other 11/11/23 05/01/24 History losartan 25 mg tablet 25 mg PO UD 11/11/23 05/01/24 History mecobalamin (vitamin B12) 1,000 1,000 mcg PO DAILY 11/11/23 05/01/24 History mcg lozenges omeprazole 20 mg capsule,delayed 20 mg PO DAILY 11/11/23 05/01/24 History release rivaroxaban 20 mg tablet (Xarelto) 20 mg PO DAILY 11/11/23 05/01/24 History zinc acetate 50 mg (zinc) capsule 50 mg PO DAILY 11/11/23 05/01/24 History meclizine 12.5 mg tablet 12.5 mg PO TID PRN dizziness #20 01/26/24 05/01/24 Rx tabs ondansetron 4 mg disintegrating 4 mg PO Q8H PRN nausea and 01/26/24 05/01/24 Rx tablet vomiting #30 tabs Past Med/Surg History Problem List (Updated 05/02/24 @ 07:06 by Luther Gu MD) Vertigo (Acute) Closed intertrochanteric fracture of left hip (Acute) Fracture in accidental fall (Acute) COVID-19 (Acute) Palpitations Sleep apnea Dyslipidemia Hypertension Syncope and collapse Medical History Anticoagulant long-term use Paroxysmal atrial fibrillation Factor V Leiden Recurrent deep vein thrombosis (DVT) Social History Smoking Status: Never smoker Hx Alcohol Use: No Hx Substance Use: No Preferred Language: Tajik Communication Ability: Effective Beliefs That Will Affect Care: None Current Living Situation: Spouse Feels Safe at Home: Yes Safety Concerns: Feels Safe At This Time Review of Systems All systems reviewed & are unremarkable except as noted in HPI & below. Physical Exam . Constitutional: WD/WN, vitals as above no acute distress Musculoskeletal: On physical examination of the left hip, her leg length is shortened with internal rotation with no erythema, ecchymosis, or other obvious deformities. She does have some mild edema diffusely throughout the left lower extremity. Range of motion and strength not assessed at the hip secondary to known fracture. She does have intact plantarflexion dorsiflexion of left ankle. Calf is soft nontender to palpation. +2 DP and PT pulse. Less than 2-second capillary refill. Normal sensation. Novastan intact. Results & Data Results & Data Laboratory Results . Diagnostic Findings . Chest X-Ray 05/01/24 10:44 XR chest 1V not portable CLINICAL HISTORY: dizziness COMPARISON STUDY: 01/26/2024 FINDINGS: Heart size and pulmonary vasculature are normal. No effusion, consolidation, or pneumothorax. IMPRESSION: No acute findings. ACT 112: Negative or not required by law. Electronically signed by: Dejan Elizabeth M.D. 05/01/2024 11:[address] 05/01/24 12:16 CT OF THE HEAD WITHOUT CONTRAST CLINICAL HISTORY: Vertigo. COMPARISON STUDY: Head CT January 26, 2024. TECHNIQUE: Helical axial images of the head were obtained without IV contrast. Automated exposure control was utilized for the study. A dose lowering technique was utilized adhering to the principles of ALARA. FINDINGS: No acute intracranial hemorrhage, midline shift or mass effect is present. The ventricular system is unremarkable. The basal cisterns are patent. No extra-axial collections are present. There are no findings to suggest acute dural sinus thrombosis or acute territorial infarct. Stable findings following the left occipital craniectomy. Encephalomalacia within the left cerebellar hemisphere is unchanged. The appearance of the brain is unchanged. IMPRESSION: No acute intracranial findings. No change in appearance of the brain. ACT 112: Negative or not required by law. Electronically signed by: Pelon Gay M.D. 05/01/2024 1:12 PM Head CTA 05/01/24 12:16 CT angio head w con, CT angio neck with con CLINICAL HISTORY: 78 years-old Female with vertigo. Acute vertigo with strokelike symptoms, nausea and vomiting COMPARISON STUDY: Head CT of same day and also 01/26/2024. TECHNIQUE: Following the IV administration of 121 cc of Optiray, CT angiogram of the head and neck was performed from the aortic arch to the skull apex. Images are reviewed in the axial, sagittal, and coronal planes. 3-D MIPS images are created and assessed. IV contrast was administered without complication. All measurements were obtained according to NASCET criteria. A dose lowering technique was utilized adhering to the principles of ALARA. CT DOSE: 1105.96 mGy.cm FINDINGS: CT BRAIN: Dictated separately. 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 Chronic lucent focus of the left parietal calvarium. CT ANGIOGRAM OF THE HEAD AND NECK: Three-vessel morphology of the thoracic aortic arch. Patency of the innominate and image subclavian arteries. The common carotid arteries are patent. Atherosclerosis of the carotid bulbs without significant stenosis. Imaged bilateral internal carotid arteries are patent. The bilateral anterior and middle cerebral arteries are also patent. The vertebrobasilar system and posterior cerebral arteries are widely patent. There is no aneurysm, high-grade stenosis, or proximal branch occlusion identified. Dural sinuses appear patent. Lung apices are clear. Unremarkable soft tissues. Degenerative changes of the cervical spine. Prior bilateral repair. IMPRESSION: 1. Unremarkable CTA of the head and neck. 2. Please refer to the head CT of same day for additional findings. ACT 112: Negative or not required by law. The above report was generated using voice recognition software. It may contain grammatical, syntax or spelling errors. Electronically signed by: Cirilo Hamilton M.D. 05/01/2024 1:19 PM Neck CTA 05/01/24 12:16 CT angio head w con, CT angio neck with con CLINICAL HISTORY: 78 years-old Female with vertigo. Acute vertigo with strokelike symptoms, nausea and vomiting COMPARISON STUDY: Head CT of same day and also 01/26/2024. TECHNIQUE: Following the IV administration of 121 cc of Optiray, CT angiogram of the head and neck was performed from the aortic arch to the skull apex. Images are reviewed in the axial, sagittal, and coronal planes. 3-D MIPS images are created and assessed. IV contrast was administered without complication. All measurements were obtained according to NASCET criteria. A dose lowering technique was utilized adhering to the principles of ALARA. CT DOSE: 1105.96 mGy.cm FINDINGS: CT BRAIN: Dictated separately. 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 Chronic lucent focus of the left parietal calvarium. CT ANGIOGRAM OF THE HEAD AND NECK: Three-vessel morphology of the thoracic aortic arch. Patency of the innominate and image subclavian arteries. The common carotid arteries are patent. Atherosclerosis of the carotid bulbs without significant stenosis. Imaged bilateral internal carotid arteries are patent. The bilateral anterior and middle cerebral arteries are also patent. The vertebrobasilar system and posterior cerebral arteries are widely patent. There is no aneurysm, high-grade stenosis, or proximal branch occlusion identified. Dural sinuses appear patent. Lung apices are clear. Unremarkable soft tissues. Degenerative changes of the cervical spine. Prior bilateral repair. IMPRESSION: 1. Unremarkable CTA of the head and neck. 2. Please refer to the head CT of same day for additional findings. ACT 112: Negative or not required by law. The above report was generated using voice recognition software. It may contain grammatical, syntax or spelling errors. Electronically signed by: Cirilo Hamilton M.D. 05/01/2024 1:19 PM Hip/Pelvis X-Ray 05/01/24 13:42 XR hip LT 2V w pelvis CLINICAL HISTORY: pain fall COMPARISON: None FINDINGS: There is an acute mildly displaced intertrochanteric fracture proximal left femur with mild proximal migration of the distal fragment. There is an old healed femoral shaft fracture on the left. No other fracture seen. IMPRESSION: Acute fracture proximal left femur. ACT 112: Negative or not required by law. Electronically signed by: Dejan Elizabeth M.D. 05/01/2024 3:15 PM Knee X-Ray 05/01/24 13:42 XR knee LT 1 or 2V routine CLINICAL HISTORY: pain fall COMPARISON: None FINDINGS: There is severe osteoarthritis. There is osteopenia. There is an old healed fracture at the shaft of the left femur. No acute fracture or dislocation seen of the left knee. IMPRESSION: No acute fracture seen. ACT 112: Negative or not required by law. Electronically signed by: Dejan Elizabeth M.D. 05/01/2024 3:16 PM Ribs w/Chest X-Ray 05/01/24 15:52 EXAM: XR ribs LT min 2V w [id number] CLINICAL HISTORY: Pain fall TECHNIQUE: X-ray images of the left ribs were obtained in [PA/AP, lateral, and oblique projections] including chest AP view. COMPARISON: none. FINDINGS: Ribs: A subtle cortical irregularity is seen involving the left 5th rib, which could be an undisplaced fracture for correlation with clinical data. Two sclerotic lines are seen involving the left 10th rib for correlation with clinical data. Chest Wall: The soft tissues of the chest wall appear unremarkable. No evidence of subcutaneous emphysema or soft tissue masses. Lungs and Pleura: The lung ontiveros are clear with no evidence of pneumothorax or pleural effusion. No pulmonary infiltrates or masses identified. IMPRESSION: 1. A subtle cortical irregularity is seen involving the left 5th rib. Questionable undisplaced fracture for correlation with clinical data. 2. Two sclerotic lines are seen involving the left 10th rib for correlation with clinical data. (Disclaimer: "A subtle bone abnormality or fracture may not be readily apparent on x-rays, thus clinical correlation and further imaging including follow-up CT, MRI, or follow-up x-rays are advised as needed"). Electronically signed by Swetha Harmon 05-01-2024 7:00 PM PG Care Time/CCT Total # of Minutes Spent Total Time Spent with Patient: Total time spent is greater than 50% in coordination of care (as documented) at patient's floor/unit and/or counseling patient: Coding Level of Care Code 22636 IN/OBS CONSULT LVL 3,45M Diagnoses Closed intertrochanteric fracture of left hip S72.142A Encounter type: initial encounter Fracture alignment: displaced (1) Closed intertrochanteric fracture of left hip Encounter type: initial encounter Fracture alignment: displaced Qualified Code(s): S72.142A - Displaced intertrochanteric fracture of left femur, initial encounter for closed fracture
[2024-05-02] MEDS: ATORVASTATIN 40 MG TAB PO SCH (09:16)
[2024-05-02] MEDS: PANTOprazole 40 MG TAB PO SCH (09:16)
[2024-05-02] MEDS ORDERED: DEXAMETHASONE SOD INJ 4 MG/ML VIAL ONE (13:34)
[2024-05-02] MEDS ORDERED: LIDOCAINE 2% 2 ML VIAL/AMP(20MG/ML) INFIL ONE (13:34)
[2024-05-02] MEDS ORDERED: PROPOFOL IV EMULSION 10 MG/ML 20 ML VIAL IV ONE (13:34)
[2024-05-02] MEDS ORDERED: ONDANSETRON INJ 2 MG/ML 2 ML VIAL ONE (13:34)
--- NOTE | 2024-05-02 13:56 | Anesthesiology Consultation ---
Date of Service May 02, 2024 Assessment & Plan Chart Review Chart Review: Acceptable Risk for Surgery and Patient NOT seen in Pre Admission Testing Consults Requested none ASA ASA3 Proposed Anesthesia Anesthesia Type: General Risk / Benefits Reviewed With: PT / POA / Parent / Guardian, Accepts Plan and Informed Consent Obtained History Surgery Operation Date: 05/02/24 08:20 Proposed Procedures p Left IM Nail - Juan Valente MD Height/Weight Height: 5 ft 2 in Weight: 78.1 kg Allergies Allergy/AdvReac Type Severity Reaction Status Date / Time bee venom protein (honey bee) Allergy Severe Anaphylaxis Verified 03/20/24 08:47 codeine AdvReac Abdominal Verified 05/02/24 05:10 Pain Medications Home Medications Medication Instructions Recorded Confirmed Last Taken albuterol sulfate 90 mcg/actuation 2 puff inhalation Q6H PRN sob 11/11/23 05/01/24 Unknown aerosol inhaler atorvastatin 20 mg tablet 20 mg PO UD 11/11/23 05/01/24 Unknown cholecalciferol (vitamin D3) 10 10 mcg PO DAILY 11/11/23 05/01/24 Unknown mcg (400 unit) capsule coenzyme Q10 75 mg capsule (Ultra 75 mg PO DAILY 11/11/23 05/01/24 Unknown CoQ10) diazepam 5 mg tablet 5 mg PO BID PRN Vertigo 11/11/23 05/01/24 Unknown lorazepam 0.5 mg tablet 0.5 mg PO UD PRN Other 11/11/23 05/01/24 Unknown losartan 25 mg tablet 25 mg PO UD 11/11/23 05/01/24 Unknown mecobalamin (vitamin B12) 1,000 1,000 mcg PO DAILY 11/11/23 05/01/24 Unknown mcg lozenges omeprazole 20 mg capsule,delayed 20 mg PO DAILY 11/11/23 05/01/24 Unknown release rivaroxaban 20 mg tablet (Xarelto) 20 mg PO DAILY 11/11/23 05/01/24 Unknown zinc acetate 50 mg (zinc) capsule 50 mg PO DAILY 11/11/23 05/01/24 Unknown meclizine 12.5 mg tablet 12.5 mg PO TID PRN dizziness #20 01/26/24 05/01/24 Unknown tabs ondansetron 4 mg disintegrating 4 mg PO Q8H PRN nausea and 01/26/24 05/01/24 Unknown tablet vomiting #30 tabs Active Medications Generic Name Dose Route Start Last Admin Trade Name Freq PRN Reason Stop Dose Admin Atorvastatin Calcium 40 mg 05/02/24 09:00 05/02/24 09:16 Atorvastatin 40 Mg Tab PO 06/01/24 08:59 Not Given DAILY H[facility]IGH Hydromorphone HCl 0.5 mg 05/01/24 16:34 05/02/24 13:09 Hydromorphone Inj 0.5 Mg/0.5 Ml Syr IV 05/15/24 16:33 0.5 mg Q1H PRN Administration Severe Pain (Rating 7,8,9,10) Meclizine HCl 12.5 mg 05/01/24 20:05 05/02/24 09:13 Meclizine 12.5 Mg Tab PO 05/31/24 20:04 12.5 mg TID PRN Administration dizziness Pantoprazole Sodium 40 mg 05/02/24 09:00 05/02/24 09:16 Pantoprazole 40 Mg Tab PO 06/01/24 08:59 Not Given DAILY HALEIGH NPO Date Last Intake of Fluids: 05/02/24 Time Last Intake of Fluids: 09:15 Last Intake of Fluids Comment: sip w/med Date Last Intake of Solids: 05/01/24 Time Last Intake of Solids: 20:00 Past Medical History Medical History Anticoagulant long-term use Paroxysmal atrial fibrillation Factor V Leiden Recurrent deep vein thrombosis (DVT) Exercise / Class Metabolic Activity III < 4 Walking/Shop/Light housework Past Anesthesia History No Hx of Anesthesia Complications and No Family Hx of Anesthesia Complications History of PONV No Hx of PONV and No Hx of Motion Sickness Social History Smoking Status: Never smoker Hx Alcohol Use: No Hx Substance Use: No Review of Systems ROS Unobtainable: All systems reviewed & are unremarkable except as noted in HPI & below Physical Exam Vital Signs Last Vital Signs Temp 36.9 C 05/02/24 13:29 Pulse 89 05/02/24 13:29 Resp 16 05/02/24 13:29 BP 151/66 H 05/02/24 13:29 Pulse Ox 94 05/02/24 13:29 O2 Del Method Nasal Cannula 05/02/24 13:29 O2 Flow Rate 2 05/02/24 13:29 ENMT Mouth: no TMJ abnormality Thyromental Distance: > or= 3.5 Finger Breadths Mallampati Class: II Neck normal visual inspection and trachea midline; neck extension not limited Respiratory normal respiratory effort Auscultation: lungs clear to auscultation bilaterally Cardiovascular Rate/Rhythm: regular rate and regular rhythm Heart Sounds: no murmur Musculoskeletal Spine: normal cervical ROM Extremities: full ROM of extremities Neurologic moves all extremities Psychiatric Orientation: alert and oriented x 3 Testing Laboratory Results 05/02/24 07:30 05/02/24 07:30 PT 11.3 Seconds (9.0-12.0) 05/01/24 10:50 INR 1.0 (0.9-1.1) 05/01/24 10:50 APTT 32 Seconds (21-31) H 05/01/24 10:50 Electrocardiogram Date: 05/01/24 Findings: + SB @ (55) with sinus arrhythmia Echocardiogram Date: 01/05/24 EF: 70 LV Function: normal Valvular Disease: + no significant valvular disease
[2024-05-02] MEDS ORDERED: ePHEDrine sulfate 50 MG/ML AMP IV PRN (13:58)
[2024-05-02] MEDS ORDERED: fentaNYL citrate PF 100 MCG/2 ML VIAL IV PRN (13:58)
[2024-05-02] MEDS ORDERED: ATROPINE SULFATE 0.1 MG/ML 10ML SYR IV PRN (13:58)
[2024-05-02] MEDS ORDERED: ROCURONIUM BROMIDE 10 MG/ML 5 ML VIAL IV ONE (14:11)
[2024-05-02] MEDS ORDERED: fentaNYL citrate PF 100 MCG/2 ML VIAL ONE (14:11)
--- NOTE | 2024-05-02 14:35 | History & Physical Bridge Note ---
Date of Service May 02, 2024 History & Physical Bridge Note I have examined the patient, reviewed the History & Physical and in the interval since the performance of the History & Physical I have noted the following changes of clinical significance: no changes noted
[2024-05-02] MEDS: ceFAZolin 2000MG 2,000 MG/15 ML SYR IV ONE (14:44)
[2024-05-02] MEDS: BUPIVACAINE/EPINEPHRINE 0.5% MPF 1:200,000 30 ML VIAL ONE (15:15)
[2024-05-02] MEDS: ceFAZolin 2,000 MG/15 ML IV PUSH IV ONE (15:15)
[2024-05-02] MEDS: TRANEXAMIC ACID / 0.7% NACL 1,000 MG/100 ML BAG IV ONE (15:48)
[2024-05-02] MEDS ORDERED: SUGAMMADEX SODIUM 200 MG/2 ML VIAL IV ONE (16:05)
--- NOTE | 2024-05-02 16:20 | Operative Report ---
PG Post Operative Report Pre & Post Diagnosis Operation Date: 05/02/24 08:20 Pre-Op Diagnosis: Left intertrochanteric/subtrochanteric femoral fx. Post-Op Diagnosis: Left intertrochanteric/subtrochanteric femoral fx. I identified the patient and participated in the time-out.: Yes Procedure Operation Date: 05/02/24 08:20 Actual Procedures p Left IM Nail(Left) - Juan Valente MD Surgeon Juan Valente MD Pot Fluxer Paul Hinton PA-C Estimated Blood Loss 100 Findings Consistent with Post-Op Diagnosis Operative findings only left inner troches/subtalar fracture. She got a malunion from a previous fracture in the mid aspect of her femur which dictated the requirement for a short IM nail. Specimens None Anesthesia Type General Complications none Disposition Accompanied Patient To Recovery: No Indications Patient is an 78-year-old female who sustained a mechanical fall yesterday. She is brought to emergency room x-rays of left inner troches/subtrochanteric femur fracture. She was admitted by the medicine service, medically optimized, and indicated for surgical repair. Description of Procedure Operative implants consist of: 1. Synthes short 120 mm x 170 mm trochanteric nail. 2. 85 mm helical blade. 3. 36 mm x 5.0 mm distal interlocking screw. The patient was taken the op room, identified, placed on the operating table in the supine position. All conductors were appropriately padded. IV antibiotics fibra anesthesia team. General anesthetic was implemented. The patient was then placed on the fracture table. The left leg was placed in boot traction and the right leg was placed in a well-leg forte. I applied some longitudinal traction to the left leg and into the rotated foot so the knee Pointed the ceiling. Some adequate x-rays were obtained and the fracture was adequately aligned. The left hip and leg were then scrubbed with a Hibiclens, prepped with ChloraPrep and draped in usual sterile fashion. A slightly curvilinear incision was made just proximal to the tip of the trochanter. Sharp dissection scalp through subcutaneous tissue down the left gluteal fascia the gluteal fascia incised longitudinally in line with skin incision. A guidewire was then just placed lateral to the tip of the trochanter and in line with the IM canal. Was advanced down the IM canal. Was overreamed with a large reamer. This guidewire was removed and a ball-tipped guidewire was placed. We then measured for nail length. That we were trying to assess whether we could put a longer nailing with this malunion. Initially we thought we could do that without much of a difficulty. We did select a medium size length nail. However, while placing this down it became apparent that we could not get this past the defect/malunion. Therefore we remove this nail and selected a 12 mm short trochanteric nail. Although not ideal I thought felt this was the most optimal option. There replaces nail over the guidewire. Was tapped in position. The lateral aiming arm was attached and advanced the lateral aspect the femur. A guidewire was placed in central aspect of the femur on both AP and lateral planes. We used this to reduce the trochanter component. We then measured an 85 mm helical blade was selected. The cortical drill and the triple reamer were then set and used to create the path of the helical blade. Helical blade was placed. We then used the interlocking guide to place the interlocking screw. Some final x-rays were obtained. We did the lead traction off before I placed the distal screw. We then irrigated the wound extensively. I tightened the proximal setscrew. I injected locally with 30 cc of half percent Marcaine with epinephrine. I irrigated the wound again. The gluteal fascia then closed with #1 Vicryl suture running fashion. The subcutaneous tissues then closed with 2 layers with a deep layer #1 Vicryl suture and subcutaneous tissues with 2-0 Dexon suture in a buried interrupted fashion. Skin was closed skin rosemary. Leg was then cleaned and dried a sterile dressing with Xeroform, four-port, ABD pad and foam tape was applied. The patient was then taken off the fracture table brought, brought out of general esthesia and transferred to the recovery in stable condition. The patient tolerated procedure well and there were no complications. Paul Hinton, my physician roofer assistant, was present for the entire procedure. His assistance required for proper patient positioning, prepping and draping, surgical exposure, retraction, performing the technical details of the operation , placement of hardware, closure of the incision site, and placement of postoperative sterile bandage. I attest to the content of the Intraoperative Record and any orders documented therein. Any exceptions are noted below.
[2024-05-02] MEDS: ONDANSETRON INJ 2 MG/ML 2 ML VIAL IV PRN (16:34)
[2024-05-02] MEDS ORDERED: MEPERIDINE HCL 25 MG/ML CARP/VIAL IV PRN (16:41)
[2024-05-02] MEDS: PROMETHAZINE 6.25 MG/50.25 ML BAG IV STA (17:12)
[2024-05-02] MEDS ORDERED: diazePAM 5 MG TABLET PO PRN (17:46)
[2024-05-02] MEDS ORDERED: LORazepam 0.5 MG TAB PO PRN (17:46)
[2024-05-02] MEDS: PROMETHAZINE HCL INJ 25 MG/ML 1 ML VIAL ONE (17:48)
--- NOTE | 2024-05-02 18:05 | Anesthesiology Progress Note ---
Date of Service May 02, 2024 Anesthesia Post Procedure Vital Signs Vital Signs: Temp Pulse Pulse Pulse Pulse Resp BP 05/02/24 17:25 97.5 F L 104 H 20 158/89 H 05/02/24 17:15 106 H 22 158/85 H 05/02/24 17:05 108 H 20 169/96 H 05/02/24 16:55 105 H 16 141/88 H 05/02/24 16:45 104 H 16 163/88 H 05/02/24 16:35 106 H 15 188/93 H 05/02/24 16:26 97.5 F L 94 H 14 177/88 H 05/02/24 13:29 98.4 F 89 16 151/66 H 05/02/24 12:23 98.6 F 83 18 151/80 H 05/02/24 10:30 78 18 132/74 05/02/24 09:30 82 17 149/80 H 05/02/24 07:29 74 05/02/24 07:12 79 18 136/71 05/02/24 06:00 74 16 150/71 H 05/02/24 02:52 05/01/24 23:37 83 05/01/24 22:00 93 H 18 158/82 H 05/01/24 19:00 81 18 146/88 H 05/01/24 18:48 77 Pulse Ox Pulse Ox O2 Del Method O2 Flow Rate 05/02/24 17:25 94 Nasal Cannula 2 05/02/24 17:15 95 Oxymask 2 05/02/24 17:05 94 Oxymask 2 05/02/24 16:55 95 Oxymask 4 05/02/24 16:45 96 Oxymask 4 05/02/24 16:35 96 Oxymask 4 05/02/24 16:26 100 Oxymask 4 05/02/24 13:29 94 Nasal Cannula 2 05/02/24 12:23 95 Room Air 05/02/24 10:30 93 Room Air 05/02/24 09:30 94 Room Air 05/02/24 07:29 05/02/24 07:12 93 Room Air 05/02/24 06:00 93 Room Air 05/02/24 02:52 92 05/01/24 23:37 05/01/24 22:00 93 Room Air 03/03/25 19:00 93 Room Air 05/01/24 18:48 Transfer of Care Handoff Completed per policy Notes Mental Status: alert / awake / arousable and participated in evaluation Patient Amnestic to Procedure: Yes Nausea / Vomiting: improving with treatment Pain: adequately controlled Airway Patency, RR, SpO2: stable & adequate BP & HR: stable & adequate Hydration State: stable & adequate Anesthetic Complications: no major complications apparent and Pt Satisfied with anesthetic care
--- NOTE | 2024-05-02 19:04 | Billing Data ---
Date of Service May 02, 2024 Coding Level of Care Code 22264 SUB INP/OBS CARE
[2024-05-02] MEDS: ceFAZolin 1000MG 1,000 MG/7.5 ML SYR IV SCH (22:10)
[2024-05-03] MEDS: CYCLOBENZAPRINE HCL 5 MG TAB PO PRN (00:01)
[2024-05-03 06:19] LABS: BUN Creatinine Ratio 31.3 (10-20); Calcium 8.5 mg/dl (8.6-10.3); Creatinine Clr Calc Pharmacy 68.2 ml/min; Potassium 4.4 mmol/L (3.5-5.1)
[2024-05-03 06:24] LABS: Basophils # (auto) 0.01 K/uL (0.00-0.20); Basophils % (auto) 0.1 %; Hematocrit (blood only) 31.7 % (37.0-47.0); Hemoglobin 10.4 g/dl (12.0-16.0); Immature Granulocytes # (auto) 0.03 K/uL (0.01-0.20); Immature Granulocytes % (auto) 0.4 %; Lymphocytes # (auto) 1.22 K/uL (1.20-3.40); Lymphocytes % (auto) 15.4 %; Mean Corpuscular Hemoglobin 28.4 pg (25.0-34.0); Mean Corpuscular Hgb Conc 32.8 g/dL (32.0-36.0); Mean Corpuscular Volume 86.6 fL (80.0-100.0); Mean Platelet Volume 9.9 fL (9.4-12.4); Monocytes % (auto) 12.7 %; Neutrophils # (auto) 5.64 K/uL (1.40-6.50); Neutrophils % (auto) 71.4 %; Platelet Count 182 K/uL (130-400); RDW Coefficient of Variation 14.2 % (11.5-14.5); RDW Standard Deviation 45.3 fL (36.4-46.3); Red Blood Count 3.66 M/uL (4.20-5.40)
--- NOTE | 2024-05-03 06:55 | Hospitalist Progress Note ---
Date of Service May 03, 2024 Assessment & Plan (1) Fracture in accidental fall: (2) Paroxysmal atrial fibrillation: (3) Factor V Leiden: (4) Recurrent deep vein thrombosis (DVT): (5) Hypertension: Plan Pt is a 78 yo female with a past medical history of chronic episodic vertigo with L sided tinnitus and hearing loss, hx meningioma s/p [id number] years ago, paroxysmal afib s/p ablation in 2017and HTN who presents to the hospital on 05/01 for acute on chronic vertigo who fell off the toilet when into the ED and sustained a L sided femur fracture. #Fall with fracture - episode of fall from standing height in bathroom at ER with L sided femur fracture - L hip xray; Acute fracture proximal left femur, chest xray for L rib pain; possible nondisplaced fracture of the 5th rib noted (will do supportive care for this) - femur fracture from fall at standing height is unusual, suspect advanced osteoporosis, pt already on vitamin D, vit D level 58 wnl, TSH 1.26 - ortho consulted; surgery done for L hip fracture on 05/02 - PT/OT consulted; pending recs #Vertigo - acute on chronic episode, ongoing for 30 years - no hx of diuretic use for this but has tried benzos with some relief - CT/CTA head on admission unremarkable - had hall monitor on 01/2024; no notable correlation of symptoms with cardiac arrhythmias, offered longer duration monitor but pt declined - carotid duplex 12/2023; unremark - continue meclizine and zofran - postop maybe transition losartan to HCTZ #Hypoxia - very mild drop to low 90s, 2L NC at most needed so far, no resp distress or increased resp effort - afebrile, no tachycardia aside from operatively yesterday, no white count, resp biofire on admission negative - etiology; atelectasis vs opioid use (dilaudid) - wean oxygen as tolerated, will continue to monitor #HTN - continue losartan #Hx Afib - she was symptomatic and cardioverted in 2017 - no episodes of afib noted so far this hospital stay #Hx DVTs #Hx factor V leiden - anticoag as noted below VTE prophylaxis: on rivaroxaban at home, to start later today at 24 hour postop gretchen per ortho Diet: regular diet as tolerated Admission and Anticipated Discharge Date Admission Date: May 01, 2024 Supervising Physician Co-Signing Physician Notes Any exceptions will be noted below Patient was seen and examined independently I discussed the case with Alina Segovia PGY2 I reviewed pertinent past medical social family history and also the plan of care and agree with the plan of care. Patient was with good pain control was accompanied by her family doing well after surgical repair Card exam is regular lungs are clear leg was shortened and externally rotated capillary refills intact Mechanical fall with left femur fracture s/p intramedullary reynold, parenteral pain control Acute blood loss anemia. no in transfusion range Intractable recurrent vertigo, h/o meningioma, no current symptoms. continue meclizine as outpt Any exceptions will be noted below Subjective Pt seen at bedside this morning. present. Pt states she is feeling okay today. She states her vertigo has been much better. She denies chest pain or SOB. She states that she had some food last night after the surgery that went down okay. asks about anticoagulation and talked to him about holding off for now immediately post op but likely to restart later today or tomorrow. All questions and concerns answered. Pain has been controlled with dilaudid and mild so far. Review of Systems Review of Systems: Per HPI. Physical Exam Physical Exam: General: Alert and oriented, no acute distress, HEENT: Normocephalic, moist oral mucosa, Cardio: Regular rate and rhythm, no murmur, Resp: Lungs clear to auscultation b/l, no wheezes or rhonchi, GI: Soft and without discomfort, nondistended, bowel sounds active Skin: Warm, pink, dry, Results & Data Results & Data Vital Signs (Past 12 Hours) Vital Signs Temp Pulse Pulse Resp BP Pulse Ox O2 Del Method 05/03/24 04:00 36.6 C 69 18 119/70 94 Nasal Cannula 05/03/24 02:15 Nasal Cannula 05/03/24 00:00 36.7 C 76 18 115/72 94 Nasal Cannula 05/02/24 22:05 36.6 C 83 16 119/66 92 Nasal Cannula 05/02/24 21:58 77 05/02/24 20:15 36.6 C 93 H 16 125/74 94 Nasal Cannula 05/02/24 19:18 36.9 C 90 18 134/76 94 Room Air O2 Flow Rate 05/03/24 04:00 2 05/03/24 02:15 2 03/05/25 00:00 2 05/02/24 22:05 2 05/02/24 21:58 05/02/24 20:15 2 05/02/24 19:18 Resident Activity Tracking Resident Involvement: Resident Care Provided Care Provided: Adult Hospital Medicine
--- NOTE | 2024-05-03 08:08 | Fluoroscopy Report ---
FL hip LT 2-3V CLINICAL HISTORY: Left IM nail COMPARISON STUDY: None FLUOROSCOPY TIME: 66 seconds FLUOROSCOPY IMAGES: 5 EXPOSURE DOSE: 7 mGy FINDINGS: Short femoral gamma nail shows no hardware complication. There is near-anatomic alignment a t the proximal femur fracture. IMPRESSION: Intraoperative fluoroscopy. ACT 112: Negative or not required by law. Electronically signed by: Dejan Elizabeth M.D. 05/03/2024 8:07 AM
[2024-05-03] MEDS ORDERED: NON-FORMULARY MEDICATION (Coenzyme Q10 [Ultra Coq10] 75 mg capsule) PO SCH (09:00)
[2024-05-03] MEDS: LOSARTAN POTASSIUM 25 MG TAB PO SCH (09:26)
[2024-05-03] MEDS: CHOLECALCIFEROL 10 MCG (400 UNITS) TAB PO SCH (09:26)
[2024-05-03] MEDS: CYANOCOBALAMIN (B-12) 500 MCG TABLET PO SCH (09:26)
--- NOTE | 2024-05-03 11:49 | Orthopedic Progress Note ---
Date of Service May 03, 2024 Assessment & Plan (1) Closed intertrochanteric fracture of left hip: (2) Fracture in accidental fall: (3) Status post hip surgery: Plan 78-year-old female POD# 1 s/p closed reduction internal fixation of LEFT intertrochanteric femur/hip fracture with short IM nail, cannulated femoral head/neck compression screw, and distal locking screw. Went over pre- and postop x-ray comparisons in detail with the patient's ; demonstrated to him the left femoroacetabular joint integrity. Plan: 1. DVT prophylaxis w/ Xarelto 10 mg. 2. PT/OT as tolerated. WBAT on LLE. 3. Continue pain control measures continue current regimen w/ IV Dilaudid, Flexeril, and oral Valium. Consider medication adjustments as needed. 4. Medical management as per the primary medicine service. 5. Dressing may be changed on POD#3; while inpatient, operative sites should remain covered, but when discharged, surgical wound can be left open to air. Plan for staple removal at 2-week postop check. 6. Disposition - pending PT/OT evals; family seeming to prefer rehab facility. 7. Follow-up outpatient with Dr. Valente's team 2-3 weeks postop. Subjective Patient is POD# 1 s/p left hip closed reduction and placement of short intramedullary nail, cannulated femoral head compression screw, and distal locking screw by Dr. Valente on 05/02/2024. Patient is in some pain this morning while working with OT. Denies CP, SOB, N/V, L LE paresthesia. Patient's is at bedside and inquires about the integrity of the left hip joint due to her history of needing to have the right hip replaced in the past. She does have a history of a left distal femur fracture when she was 6 years old. Review of Systems All systems reviewed & are unremarkable except as noted in HPI & below. Physical Exam GENERAL: AA&Ox3, NAD. Pleasant, affect is calm. Lying in bed in does appear to be in some pain to the left hip when working with OT. RESPIRATORY: Normal respiratory effort with no signs of distress. CHEST/AXILLA: Chest movement symmetrical. No deformities noted. CARDIOVASCULAR: No edema noted. SKIN: [place], warm and dry. MS/EXTREMITY: Hip dressing c/d/i. BRITANY bunch. Thigh is soft, supple. Patient has a baseline leg length discrepancy due to a childhood fracture of the left distal femur resulting in anatomical change. + ankle dorsi/plantarflexion. NVI distally. Calf soft/NT. PT/DP pulses intact, 2+. Results & Data Results & Data Laboratory Results . Laboratory Results - last 24 hr 05/03/24 05:47 WBC 7.90 RBC 3.66 L Hgb 10.4 L Hct 31.7 L MCV 86.6 MCH 28.4 MCHC 32.8 RDW Std Deviation 45.3 RDW Coeff of Artemio 14.2 Plt Count 182 MPV 9.9 Immature Gran % (Auto) 0.4 Neut % (Auto) 71.4 Lymph % (Auto) 15.4 [place] % (Auto) 12.7 Eos % (Auto) 0.0 Baso % (Auto) 0.1 Neut # (Auto) 5.64 Lymph # (Auto) 1.22 [place] # (Auto) 1.00 H Eos # (Auto) 0.00 Baso # (Auto) 0.01 Immature Gran # (Auto) 0.03 Sodium 137 Potassium 4.4 Chloride 104 Carbon Dioxide 29 Anion Gap 4 BUN 20 Creatinine 0.64 Est Cr Clr Drug Dosing 68.2 eGFR 89.28 BUN/Creatinine Ratio 31.3 H Glucose 120 H Calcium 8.5 L 25-OH Vitamin D Total 58.3 Diagnostic Findings . Hip X-Ray 05/02/24 09:00 FL hip LT 2-3V CLINICAL HISTORY: Left IM nail COMPARISON STUDY: None FLUOROSCOPY TIME: 66 seconds FLUOROSCOPY IMAGES: 5 EXPOSURE DOSE: 7 mGy FINDINGS: Short femoral gamma nail shows no hardware complication. There is near-anatomic alignment at the proximal femur fracture. IMPRESSION: Intraoperative fluoroscopy. ACT 112: Negative or not required by law. Electronically signed by: Dejan Elizabeth M.D. 05/03/2024 8:07 AM PG Care Time/CCT Total # of Minutes Spent Total Time Spent with Patient: Total time spent is greater than 50% in coordination of care (as documented) at patient's floor/unit and/or counseling patient: [place] [address] SUB INP/OBS CARE 2/35MIN Patient Type Established History Expanded Problem Focused Exam Expanded Problem Focused Medical Decision Making Moderate Complexity Diagnoses Closed intertrochanteric fracture of left hip S72.142A Encounter type: initial encounter Fracture alignment: displaced Fracture in accidental fall T14.8XXA; W19.XXXA Status post hip surgery Z98.890 Additional Codes Fx Hip/Femur - Trochanteric inter-/kristin-/sub-: Trochanteric inter-/kristin-/sub- ([id number]) (1) Closed intertrochanteric fracture of left hip Encounter type: initial encounter Fracture alignment: displaced Qualified Code(s): S72.142A - Displaced intertrochanteric fracture of left femur, initial encounter for closed fracture
[2024-05-03] MEDS: RIVAROXABAN 10 MG TABLET PO SCH (17:19)
--- NOTE | 2024-05-03 17:20 | Billing Data ---
Date of Service May 03, 2024 Coding Level of Care Code 24887 SUB INP/OBS CARE
[2024-05-03] MEDS: ONDANSETRON INJ 2 MG/ML 2 ML VIAL IV PRN (17:46)
[2024-05-03] MEDS: POLYETHYLENE (MIRALAX) 17 GM PACK PO SCH (17:46)
--- NOTE | 2024-05-03 19:04 | Electrocardiogram Report ---
Test Reason : Blood Pressure : */* mmHG Vent. Rate : 55 BPM Atrial Rate : 55 BPM P-R Int : 186 ms QRS Dur : 82 ms QT Int : 444 ms P-R-T Axes : 53 -8 37 degrees QTcB Int : 424 ms Sinus bradycardia with sinus arrhythmia Cannot rule out Anterior infarct (cited on or before 26-Jan-2024) Abnormal ECG When compared with ECG of 26-Jan-2024 14:28, CT interval has decreased Vent. rate has decreased by [address] no longer depressed in Lateral leads T wave inversion no longer evident in Lateral leads Confirmed by Collins Billy ([id number]) on 05/03/2024 7:04:47 PM Referred By: REFERRED SELF Confirmed By: Collins Billy
[2024-05-04] MEDS ORDERED: ACETAMINOPHEN 500 MG TAB PO PRN (05:22)
[2024-05-04 06:31] LABS: Basophils # (auto) 0.02 K/uL (0.00-0.20); Basophils % (auto) 0.3 %; Eosinophils # (auto) 0.02 K/uL (0.00-0.50); Eosinophils % (auto) 0.3 %; Hematocrit (blood only) 29.2 % (37.0-47.0); Hemoglobin 9.5 g/dl (12.0-16.0); Immature Granulocytes # (auto) 0.01 K/uL (0.01-0.20); Immature Granulocytes % (auto) 0.2 %; Lymphocytes # (auto) 1.85 K/uL (1.20-3.40); Lymphocytes % (auto) 28.2 %; Mean Corpuscular Hemoglobin 28.1 pg (25.0-34.0); Mean Corpuscular Hgb Conc 32.5 g/dL (32.0-36.0); Mean Corpuscular Volume 86.4 fL (80.0-100.0); Mean Platelet Volume 10.2 fL (9.4-12.4); Monocytes # (auto) 1.04 K/uL (0.11-0.59); Monocytes % (auto) 15.9 %; Neutrophils # (auto) 3.62 K/uL (1.40-6.50); Neutrophils % (auto) 55.1 %; Platelet Count 141 K/uL (130-400); RDW Coefficient of Variation 14.2 % (11.5-14.5); Red Blood Count 3.38 M/uL (4.20-5.40); White Blood Count 6.56 K/ul (4.8-10.8)
[2024-05-04 06:45] LABS: BUN Creatinine Ratio 27.9 (10-20); Calcium 8.2 mg/dl (8.6-10.3); Creatinine Clr Calc Pharmacy 71.5 ml/min; Potassium 4.1 mmol/L (3.5-5.1)
--- NOTE | 2024-05-04 06:55 | Hospitalist Progress Note ---
Date of Service May 04, 2024 Assessment & Plan (1) Fracture in accidental fall: (2) Paroxysmal atrial fibrillation: (3) Factor V Leiden: (4) Recurrent deep vein thrombosis (DVT): (5) Hypertension: Plan Pt is a 78 yo female with a past medical history of chronic episodic vertigo with L sided tinnitus and hearing loss, hx meningioma s/p [id number] years ago, paroxysmal afib s/p ablation in 2017and HTN who presents to the hospital on 05/01 for acute on chronic vertigo who fell off the toilet when into the ED and sustained a L sided femur fracture. #Fall with fracture - episode of fall from standing height in bathroom at ER with L sided femur fracture - L hip xray; Acute fracture proximal left femur, chest xray for L rib pain; possible nondisplaced fracture of the 5th rib noted (will do supportive care for this) - femur fracture from fall at standing height is unusual, suspect advanced osteoporosis, pt already on vitamin D, vit D level 58 wnl, TSH 1.26 - ortho consulted; surgery done for L hip fracture on 05/02, POD#2 today - to optimize pain control today; scheduled po tylenol with oxycodone first line and dilaudid as back up, once pain can be managed with po meds she will likely be ready for discharge to rehab, tomorrow most likely - PT/OT consulted; rehab at discharge #Vertigo - acute on chronic episode, ongoing for 30 years - no hx of diuretic use for this but has tried benzos with some relief - CT/CTA head on admission unremarkable - had blood bank technologist on 01/2024; no notable correlation of symptoms with cardiac arrhythmias, offered longer duration monitor but pt declined - carotid duplex 12/2023; unremark - continue meclizine and zofran - outpatient consider transition of losartan to HCTZ #Hypoxia - very mild drop to low 90s, 2L NC at most needed so far, no resp distress or increased resp effort - afebrile, no tachycardia aside from operatively yesterday, no white count, resp biofire on admission negative - etiology; atelectasis vs opioid use (dilaudid) - wean oxygen as tolerated, will continue to monitor, on RA today #HTN - continue losartan #Hx Afib - she was symptomatic and cardioverted in 2017 - no episodes of afib noted so far this hospital stay #Hx DVTs #Hx factor V leiden - anticoag as noted below VTE prophylaxis: home xarelto Diet: regular diet as tolerated Admission and Anticipated Discharge Date Admission Date: May 01, 2024 Supervising Physician Co-Signing Physician Notes Any exceptions will be noted below Patient was seen and examined independently I discussed the case with Alina Segovia PGY2 I reviewed pertinent past medical social family history and also the plan of care and agree with the plan of care. Patient continnuing to require pain medicine. Will place patient on scheduled tylenol and continue as needed opiates. Card exam is regular lungs are clear leg was shortened and externally rotated capillary refills intact Mechanical fall with left femur fracture s/p intramedullary reynold, parenteral pain control Acute blood loss anemia. not in transfusion range. will recheck in AM. Intractable recurrent vertigo, h/o meningioma, no current symptoms. continue meclizine as outpt Any exceptions will be noted below Subjective Pt seen at bedside this morning. is present. Pt states from a vertigo standpoint she is feeling okay. No chest pain or SOB today. No nausea noted. No abdominal pain. She states her rib pain is more mild today. She does note that her L hip, for which she is POD#2 from surgery, is still very tender and can be very painful with movement. The dilaudid does make the pain tolerable. She has gotten up and felt okay when she did other than the L sided hip/leg pain. All questions/concerns answered. Review of Systems Review of Systems: Per HPI. Physical Exam Physical Exam: General: Alert and oriented, no acute distress, HEENT: Normocephalic, moist oral mucosa, Cardio: Regular rate and rhythm, no murmur, Resp: Lungs clear to auscultation b/l with very faint crackles in lower lobes, no wheezes GI: Soft and without discomfort Skin: Warm, pink, dry, Results & Data Results & Data Vital Signs (Past 12 Hours) Vital Signs Temp Pulse Pulse Resp BP Pulse Ox O2 Del Method 05/04/24 03:05 37.3 C 85 18 122/66 95 Nasal Cannula 05/03/24 23:24 90 05/03/24 22:45 37.2 C 89 18 119/64 92 Nasal Cannula 05/03/24 20:25 37.1 C 93 H 18 129/70 90 Room Air O2 Flow Rate 03/06/25 03:05 2 05/03/24 23:24 05/03/24 22:45 2 05/03/24 20:25 Resident Activity Tracking Resident Involvement: Resident Care Provided Care Provided: Adult Hospital Medicine
--- NOTE | 2024-05-04 07:45 | Orthopedic Progress Note ---
Date of Service May 04, 2024 Assessment & Plan (1) Status post hip surgery: POD 2 from left TFN for hip fx. Has increased pain this morning. She was seen and examined by Dr. Valente. We will see how she does today with PT/OT. WBAT. If she continues to have pain and difficulty with therapy then may get some xrays of the left hip/femur. continue dvt prophylaxis: teds, scd's, xarelto d/c planning to rehab. Subjective .78 year old patient POD 2 from short TFN of a left hip fx. Was doing okay yesterday and out of bed but developed increase hip/leg pain overnight. No new injury. Review of Systems All systems reviewed & are unremarkable except as noted in HPI & below. Physical Exam . alert and oriented. NAD. VSS Left leg: dressing clean, dry, intact. Able to dorsiflex and plantarflex. Thigh compartments soft, but she is tender to touch. Results & Data Results & Data Laboratory Results . Diagnostic Findings . PG Care Time/CCT Total # of Minutes Spent Total Time Spent with Patient: Total time spent is greater than 50% in coordination of care (as documented) at patient's floor/unit and/or counseling patient: Coding Level of Care Code 30278 Post Operative Follow-Up Diagnoses Status post hip surgery Z98.890
[2024-05-04] MEDS: ACETAMINOPHEN 325 MG TAB PO SCH (12:16)
[2024-05-04] MEDS: oxyCODONE HCL IR 5 MG TAB (IMMEDIATE RELEASE) PO PRN (12:17)
[2024-05-04] MEDS: HYDROmorphone INJ 0.5 MG/0.5 ML SYR IV PRN (15:32)
--- NOTE | 2024-05-04 22:40 | Billing Data ---
Date of Service May 04, 2024 Coding Level of Care Code 96203 SUB INP/OBS CARE MIN
[2024-05-05 06:21] LABS: Basophils # (auto) 0.02 K/uL (0.00-0.20); Basophils % (auto) 0.4 %; Eosinophils # (auto) 0.09 K/uL (0.00-0.50); Eosinophils % (auto) 1.6 %; Hematocrit (blood only) 25.5 % (37.0-47.0); Hemoglobin 8.3 g/dl (12.0-16.0); Immature Granulocytes # (auto) 0.02 K/uL (0.01-0.20); Immature Granulocytes % (auto) 0.4 %; Lymphocytes # (auto) 1.63 K/uL (1.20-3.40); Lymphocytes % (auto) 28.8 %; Mean Corpuscular Hemoglobin 28.3 pg (25.0-34.0); Mean Corpuscular Hgb Conc 32.5 g/dL (32.0-36.0); Mean Platelet Volume 10.4 fL (9.4-12.4); Monocytes % (auto) 15.9 %; Neutrophils % (auto) 52.9 %; Platelet Count 154 K/uL (130-400); RDW Coefficient of Variation 14.1 % (11.5-14.5); RDW Standard Deviation 44.7 fL (36.4-46.3); Red Blood Count 2.93 M/uL (4.20-5.40); White Blood Count 5.66 K/ul (4.8-10.8)
[2024-05-05 06:32] LABS: BUN Creatinine Ratio 23.8 (10-20); Calcium 8.1 mg/dl (8.6-10.3); Creatinine Clr Calc Pharmacy 58.1 ml/min; Potassium 3.9 mmol/L (3.5-5.1)
--- NOTE | 2024-05-05 06:51 | Hospitalist Progress Note ---
Date of Service May 05, 2024 Assessment & Plan (1) Fracture in accidental fall: (2) Paroxysmal atrial fibrillation: (3) Factor V Leiden: (4) Recurrent deep vein thrombosis (DVT): (5) Hypertension: (6) Anemia: Plan Pt is a 78 yo female with a past medical history of chronic episodic vertigo with L sided tinnitus and hearing loss, hx meningioma s/p [id number] years ago, paroxysmal afib s/p ablation in 2017and HTN who presents to the hospital on 05/01 for acute on chronic vertigo who fell off the toilet when into the ED and sustained a L sided femur fracture. #Fall with fracture - episode of fall from standing height in bathroom at ER with L sided femur fracture - L hip xray; Acute fracture proximal left femur, chest xray for L rib pain; possible nondisplaced fracture of the 5th rib noted (will do supportive care for this) - femur fracture from fall at standing height is unusual, suspect advanced osteoporosis, pt already on vitamin D, vit D level 58 wnl, TSH 1.26 - ortho consulted; surgery done for L hip fracture on 05/02, POD#3 today - to optimize pain control today; scheduled po tylenol with oxycodone 5mg pain 6-8 prn, 10mg pain 9-10, once pain can be managed with po meds she will likely be ready for discharge to rehab, tomorrow most likely - PT/OT consulted; rehab at discharge #Acute Blood Loss Anemia - in the setting of recent surgery - Hgb downtrending from 13 on admission to 8.3 3/7 - hemodynamically stable #Vertigo - acute on chronic episode, ongoing for 30 years - no hx of diuretic use for this but has tried benzos with some relief - CT/CTA head on admission unremarkable - had quality assurance monitor body on 01/2024; no notable correlation of symptoms with cardiac arrhythmias, offered longer duration monitor but pt declined - carotid duplex 12/2023; unremark - continue meclizine and zofran - outpatient consider transition of losartan to HCTZ #Hypoxia - very mild drop to low 90s, 2L NC at most needed so far, no resp distress or increased resp effort - afebrile, no white count, resp biofire on admission negative - etiology; atelectasis vs opioid use (dilaudid) - wean oxygen as tolerated, will continue to monitor #HTN - continue losartan #Hx Afib - she was symptomatic and cardioverted in 2017 - no episodes of afib noted so far this hospital stay #Hx DVTs #Hx factor V leiden - anticoag as noted below VTE prophylaxis: home xarelto Diet: regular diet as tolerated Admission and Anticipated Discharge Date Admission Date: May 01, 2024 Supervising Physician Co-Signing Physician Notes Any exceptions will be noted below Patient was seen and examined independently I discussed the case with Sourav Leone PGY3 I reviewed pertinent past medical social family history and also the plan of care and agree with the plan of care. Patient continuing to require pain medicine. Will place patient on scheduled tylenol and continue as needed opiates. Now on oral opiates. Patient required an equivalent of 25 mg of oxycodone yesterday Card exam is regular lungs are clear leg was shortened and externally rotated capillary refills intact Mechanical fall with left femur fracture s/p intramedullary reynold, parenteral pain control Acute blood loss anemia. is downtrending not in transfusion range. will recheck in AM. Intractable recurrent vertigo, h/o meningioma, no current symptoms. continue meclizine as outpt Any exceptions will be noted below Subjective Pt seen at bedside this morning, no events overnight. Still with significant pain post-op. Has not had BM since admitted. Review of Systems Review of Systems: As per above Physical Exam Physical Exam: Constitutional: well-appearing, no acute distress HEENT: NCAT, no conjunctival injection CV: regular rhythm, no murmur appreciated, extremities well-perfused, no LE edema Resp: CTABL, no wheezes/rales/rhonchi appreciated, no increased work of breathing GI: soft, nondistended, nontender MSK: no gross deformities appreciated Skin: warm, dry, no rash appreciated Neuro: alert, oriented, no focal neurologic deficit appreciated Results & Data Results & Data Vital Signs (Past 12 Hours) Vital Signs Temp Pulse Pulse Resp BP Pulse Ox O2 Del Method 05/05/24 03:02 36.3 C L 74 14 104/64 97 Nasal Cannula 05/04/24 21:56 70 05/04/24 21:13 Nasal Cannula 05/04/24 19:14 36.9 C 79 12 105/64 97 Nasal Cannula O2 Flow Rate 05/05/24 03:02 2 05/04/24 21:56 05/04/24 21:13 2 05/04/24 19:14 2 Resident Activity Tracking Resident Involvement: Resident Care Provided Care Provided: Adult Hospital Medicine
[2024-05-05] MEDS: RIVAROXABAN 20 MG TAB PO SCH (08:39)
[2024-05-05] MEDS: POLYETHYLENE (MIRALAX) 17 GM PACK PO SCH (08:40)
[2024-05-05] MEDS: oxyCODONE HCL IR 5 MG TAB (IMMEDIATE RELEASE) PO PRN (10:15)
--- NOTE | 2024-05-05 11:24 | Orthopedic Progress Note ---
Date of Service May 05, 2024 Assessment & Plan (1) Status post hip surgery: POD 3 from left TFN for hip fx. -I messaged her nurse as well as hospitalist about their concerns about not mobilizing enough as well as her pain. - Most recent CM note: "Attending provider asking if bed available today for patient to discharge to [facility]. Spoke with [facility] liaison, David, and as of time of this entry there is currently no bed availability likely looking at tomorrow for anticipated admission there. Will update attending if this should change." - Continue PT/OT as tolerated. WBAT. - continue dvt prophylaxis: teds, scd's, xarelto - d/c planning to rehab as above. Subjective Operation Date: 05/02/24 08:20 Actual Procedures p Left IM Nail(Left) - Juan Valente MD POD 3 from a left IM nailing by Dr. Valente. Patient's daughter in the room today. They both have some concerns about pain and mobility. They would like to go to rehab [facility]. They feel she is not being mobilized enough during the day. PT has seen them. She states that her pain is not controlled enough with the current regime. Review of Systems All systems reviewed & are unremarkable except as noted in HPI & below. Physical Exam Gen: alert and oriented. No acute distress. Dressing dry and intact. I believe it is her post op dressing. This can be changed today. NV intact LLE. She is quite painful with ROM LLE. Results & Data Results & Data Laboratory Results . Diagnostic Findings . PG Care Time/CCT Total # of Minutes Spent Total Time Spent with Patient: Total time spent is greater than 50% in coordination of care (as documented) at patient's floor/unit and/or counseling patient: Coding Level of Care Code 18461 Post Operative Follow-Up Diagnoses Status post hip surgery Z98.890
[2024-05-05] MEDS: HYDROmorphone INJ 0.5 MG/0.5 ML SYR IV PRN (17:04)
--- NOTE | 2024-05-05 23:19 | Billing Data ---
Date of Service May 05, 2024 Coding Level of Care Code 50433 SUB INP/OBS CARE MIN
[2024-05-05 23:55] LABS: Hematocrit (blood only) 24.8 % (37.0-47.0); Hemoglobin 8.2 g/dl (12.0-16.0)
--- NOTE | 2024-05-06 01:11 | CT Scan Report ---
EXAM: CT abd pelvis wo con CLINICAL HISTORY: fall/ anemia/ concern for hematoma TECHNIQUE: Contiguous axial images were obtained from the level of the diaphragm to the pubic symphysis without intravenous or oral contrast. Coronal and sagittal reconstructions were likewise performed and indicated to increase the sensitivity for detecting clinically relevant pathology. CT scan was performed according to ALARA (as low as reasonably achievable). COMPARISON: none FINDINGS: The visualized lung bases shows subsegmental fibro-bronchiectasis with fibro-atelectasis in bilateral lower lobes. Evaluation of the abdominal and pelvic visceral organs is limited without intravenous contrast. A 3.5x3.7cm hypodense lesion seen in segment of right lobe of liver. The unenhanced spleen, pancreas, and adrenal glands are grossly unremarkable. Post cholecystectomy status. The kidneys are normal in size and attenuation . A 2 mm calculus seen in lower pole of left kidney. There is no hydronephrosis or perinephric stranding. The ureters are normal in caliber. No adenopathy or fluid collections are seen. No evidence of focal or diffuse bowel wall thickening or evidence of bowel obstruction is seen. Few small diverticuli seen in proximal sigmoid colon, descending colon and cecum. No inflammatory changes. The appendix is not visualized. The aorta is normal in caliber. IVC filter is seen. The urinary bladder is normal in contour. Pelvic viscera are grossly unremarkable. No aggressive appearing osseous lesions are identified. Rectosigmoid is distended and loaded with fecal matter. Total hip replacement status on right side and fixation intramedullary reynold in left femur neck. Subcutaneouse fat stranding and few air foci seen along left hip region- superficial injury. IMPRESSION: 1. Hypodense right lobe hepatic lesion. Suggested Ultrasound and contrast CT study for characterisation of the lesion. 2. Non-obstructing left nephrolithiasis. 3. Uncomplicated diverticulosis of proximal sigmoid colon, descending colon and cecum 4. Rectosigmoid is distended and loaded with fecal matter. 5. Subsegmental fibro-bronchiectasis with fibro-atelectasis in bilateral lower lobes of lungs. 6. Subcutaneouse fat stranding and few air foci seen along left hip region- superficial injury. Electronically signed by Primo Steev 05-06-2024 01:10 AM
[2024-05-06 06:28] LABS: Hematocrit (blood only) 26.6 % (37.0-47.0); Hemoglobin 8.7 g/dl (12.0-16.0); Mean Corpuscular Hemoglobin 28.4 pg (25.0-34.0); Mean Corpuscular Hgb Conc 32.7 g/dL (32.0-36.0); Mean Corpuscular Volume 86.9 fL (80.0-100.0); Mean Platelet Volume 9.8 fL (9.4-12.4); Platelet Count 163 K/uL (130-400); RDW Coefficient of Variation 13.9 % (11.5-14.5); RDW Standard Deviation 44.1 fL (36.4-46.3); Red Blood Count 3.06 M/uL (4.20-5.40); White Blood Count 4.47 K/ul (4.8-10.8)
[2024-05-06 06:46] LABS: Calcium 8.2 mg/dl (8.6-10.3); Creatinine Clr Calc Pharmacy 77.5 ml/min; Potassium 4.3 mmol/L (3.5-5.1)
--- NOTE | 2024-05-06 07:52 | Orthopedic Progress Note ---
Date of Service May 06, 2024 Assessment & Plan (1) Closed intertrochanteric fracture of left hip: Plan: 78-year-old female postop day 4 from IM nailing of left intertrochanteric/subtrochanteric femur fracture. Orthopedically she stable. Hemoglobin is improved. Having a moderate amount of pain but nothing unusual. Plan: Continue physical therapy. She can weight-bear as tolerated. Routine wound care. Medical management as per the medicine service. She is orthopedically okay for discharge anytime medically stable. Any orthopedic questions can be directly [phone]. Admission and Anticipated Discharge Date Admission Date: May 01, 2024 Subjective 78-year-old female postop day 4 from IM nailing of left inner troches/femur fracture. Moderate discomfort. No new complaints. Just having a difficult time mobilizing. Moderate amount of pain. Physical Exam Physical Exam: Physical exam shows a pleasant elderly female. She is lying in bed. Looks reasonably comfortable. Examination of left hip and leg reveals the dressing be clean dry and intact. Leg is well aligned. She is neurologically intact. Results & Data Vital Signs (Past 12 Hours) Vital Signs Temp Pulse Pulse Resp BP Pulse Ox O2 Del Method 05/06/24 07:00 72 05/06/24 03:29 36.6 C 72 16 102/57 L 99 Nasal Cannula 05/05/24 23:08 36.6 C 77 18 101/63 96 Nasal Cannula 05/05/24 21:42 78 O2 Flow Rate 05/06/24 07:00 05/06/24 03:29 2 05/05/24 23:08 2 05/05/24 21:42 Diagnostic Findings Hemoglobin 8.7. Hematocrit 26.6. Electrolytes are stable. (1) Closed intertrochanteric fracture of left hip Encounter type: initial encounter Fracture alignment: displaced Qualified Code(s): S72.142A - Displaced intertrochanteric fracture of left femur, initial encounter for closed fracture
[2024-05-06] MEDS: SENNA 8.6 MG TAB PO SCH (09:19)
[2024-05-06] MEDS: POLYETHYLENE (MIRALAX) 17 GM PACK PO ONE (09:19)
--- NOTE | 2024-05-06 10:52 | Hospitalist Progress Note ---
Date of Service May 06, 2024 Assessment & Plan (1) Fracture in accidental fall: (2) Paroxysmal atrial fibrillation: (3) Factor V Leiden: (4) Recurrent deep vein thrombosis (DVT): (5) Hypertension: (6) Anemia: Plan Pt is a 78 yo female with a past medical history of chronic episodic vertigo with L sided tinnitus and hearing loss, hx meningioma s/p [id number] years ago, paroxysmal afib s/p ablation in 2017and HTN who presents to the hospital on 05/01 for acute on chronic vertigo who fell off the toilet when into the ED and sustained a L sided femur fracture. #Fall with fracture - episode of fall from standing height in bathroom at ER with L sided femur fracture - L hip xray; Acute fracture proximal left femur, chest xray for L rib pain; possible nondisplaced fracture of the 5th rib noted (will do supportive care for this) - femur fracture from fall at standing height is unusual, suspect advanced osteoporosis, pt already on vitamin D, vit D level 58 wnl, TSH 1.26 - ortho consulted; surgery done for L hip fracture on 05/02, POD#4 today - to optimize pain control today; scheduled po tylenol with oxycodone 5mg pain 6-8 prn, 10mg pain 9-10 - PT/OT consulted; rehab at discharge-> medically stable for rehab pending bed availability #Acute Blood Loss Anemia - in the setting of recent surgery - Hgb downtrending from 13 on admission to 8.7 3/8 - CT A&P without signs of hematoma - hemodynamically stable #Vertigo - acute on chronic episode, ongoing for 30 years - no hx of diuretic use for this but has tried benzos with some relief - CT/CTA head on admission unremarkable - had bus driver/monitor on 01/2024; no notable correlation of symptoms with cardiac arrhythmias, offered longer duration monitor but pt declined - carotid duplex 12/2023; unremark - continue meclizine and zofran - outpatient consider transition of losartan to HCTZ #Hypoxia - very mild drop to low 90s, 2L NC at most needed so far, no resp distress or increased resp effort - afebrile, no white count, resp biofire on admission negative - etiology; atelectasis vs opioid use (dilaudid) - Subsegmental fibro-bronchiectasis with fibro-atelectasis in bilateral lower lobes of lungs noted on CT -> may consider pulm f/u as outpateint - now stable in room air #Hepatic Lesion - hypodense right lobe hepatic lesion with normal LFTs - f/u with outpatient US/CT #Constipation - in the setting of recent surgery/opioid use - continue miralax, add senna #HTN - continue losartan #Hx Afib - she was symptomatic and cardioverted in 2017 - no episodes of afib noted so far this hospital stay #Hx DVTs #Hx factor V leiden - anticoag as noted below VTE prophylaxis: home xarelto Diet: regular diet as tolerated Admission and Anticipated Discharge Date Admission Date: May 01, 2024 Supervising Physician Co-Signing Physician Notes Any exceptions will be noted below Patient was seen and examined independently I discussed the case with Sourav Leone PGY3 I reviewed pertinent past medical social family history and also the plan of care and agree with the plan of care. Patient continuing to require pain medicine. Will place patient on scheduled tylenol and continue as needed opiates. Now on oral opiates. Patient required an equivalent of 15 mg of oxycodone yesterday Card exam is regular lungs are clear leg was shortened and externally rotated capillary refills intact Mechanical fall with left femur fracture s/p intramedullary reynold, parenteral pain control Acute blood loss anemia.hemoglobin stable, will continue dvt prophylaxis. reviewed ct scan, noactive bleeding Intractable recurrent vertigo, h/o meningioma, no current symptoms. continue mec lizine as outpt Any exceptions will be noted below Subjective Pt seen at bedside with . Continues to have right leg pain, improved from yesterday. Review of Systems Review of Systems: As per above Physical Exam Physical Exam: Constitutional: well-appearing, no acute distress HEENT: NCAT, no conjunctival injection CV: regular rhythm, no murmur appreciated, extremities well-perfused, no LE edema Resp: CTABL, no wheezes/rales/rhonchi appreciated, no increased work of breathing GI: soft, nondistended, nontender MSK: no gross deformities appreciated Skin: warm, dry, no rash appreciated Neuro: alert, oriented, no focal neurologic deficit appreciated Results & Data Results & Data Vital Signs (Past 12 Hours) Vital Signs Temp Pulse Pulse Resp BP Pulse Ox O2 Del Method 05/06/24 09:00 94 Room Air 05/06/24 08:05 Room Air 05/06/24 07:57 36.6 C 78 16 112/70 99 Nasal Cannula 05/06/24 07:00 72 05/06/24 03:29 36.6 C 72 16 102/57 L 99 Nasal Cannula 05/05/24 23:08 36.6 C 77 18 101/63 96 Nasal Cannula O2 Flow Rate 05/06/24 09:00 05/06/24 08:05 05/06/24 07:57 3 05/06/24 07:00 05/06/24 03:29 2 05/05/24 23:08 2 Resident Activity Tracking Resident Involvement: Resident Care Provided Care Provided: Adult Hospital Medicine
[2024-05-06] MEDS: RIVAROXABAN 20 MG TAB PO SCH (16:29)
--- NOTE | 2024-05-06 22:31 | Billing Data ---
Date of Service May 06, 2024 Coding Level of Care Code 33801 SUB INP/OBS CARE MIN
--- NOTE | 2024-05-07 09:09 | Orthopedic Progress Note ---
Date of Service May 07, 2024 Assessment & Plan (1) Status post hip surgery: Plan: 78-year-old female postop day 5 from IM nailing of left inner troches/subtalar fracture doing okay. She struggled a bit with pain. It appears stable. Orthopedically she appears stable. Multiple other medical issues. Plan: 1. DVT prophylaxis including thigh-high teds, SCDs, back on normal dose of Xarelto. 2. PT/OT. She can weight-bear as tolerated. 3. Pain control. Seems to be doing okay with current pain regimen. 4. Disposition. She is okay for discharge anytime medically stable. Once again, I need to see her back 2 to 3 weeks out from surgery date. Any ortho pedic questions can be directly [phone]. (2) Closed intertrochanteric fracture of left hip: (3) Fracture in accidental fall: (4) Factor V Leiden: (5) Paroxysmal atrial fibrillation: Admission and Anticipated Discharge Date Admission Date: May 01, 2024 Subjective 78-year-old female now postop day 5 from IM nailing of the left inner troches/subtalar fracture. She appears stable. Fairly comfortable laying in bed but still having quite a bit of pain with any type of mobilization. No new complaints. Physical Exam Physical Exam: Physical examination was a pleasant elderly female. I had to wake her this morning. Examination left hip and leg reveals leg to be well aligned. Dressings clean dry and intact. Thigh soft and supple. She is neurologically intact. Results & Data Vital Signs (Past 12 Hours) Vital Signs Temp Pulse Pulse Resp BP Pulse Ox O2 Del Method 05/07/24 08:05 36.9 C 83 16 145/79 H 95 Room Air 05/07/24 07:00 88 05/07/24 04:35 36.5 C 76 16 118/66 93 Room Air 05/06/24 22:35 36.9 C 66 16 109/67 96 Room Air 05/06/24 22:00 72 (2) Closed intertrochanteric fracture of left hip Encounter type: initial encounter Fracture alignment: displaced Qualified Code(s): S72.142A - Displaced intertrochanteric fracture of left femur, initial encounter for closed fracture
--- NOTE | 2024-05-07 11:33 | Hospitalist Progress Note ---
Date of Service May 07, 2024 Assessment & Plan (1) Fracture in accidental fall: (2) Paroxysmal atrial fibrillation: (3) Factor V Leiden: (4) Recurrent deep vein thrombosis (DVT): (5) Hypertension: (6) Anemia: Plan Pt is a 78 yo female with a past medical history of chronic episodic vertigo with L sided tinnitus and hearing loss, hx meningioma s/p [id number] years ago, paroxysmal afib s/p ablation in 2017and HTN who presents to the hospital on 05/01 for acute on chronic vertigo who fell off the toilet when into the ED and sustained a L sided femur fracture now s/p Left IM nail 05/02 waiting for rehab bed. #Fall with fracture - episode of fall from standing height in bathroom at ER with L sided femur fracture - L hip xray; Acute fracture proximal left femur, chest xray for L rib pain; possible nondisplaced fracture of the 5th rib noted (will do supportive care for this) - femur fracture from fall at standing height is unusual, suspect advanced osteoporosis, pt already on vitamin D, vit D level 58 wnl, TSH 1.26 - ortho consulted; surgery done for L hip fracture on 05/02, POD#4 today - to optimize pain control today; scheduled po tylenol with oxycodone 5mg pain 6-8 prn, 10mg pain 9-10 - PT/OT consulted; rehab at discharge-> medically stable for rehab pending bed availability #Acute Blood Loss Anemia - in the setting of recent surgery - Hgb downtrending from 13 on admission to 8.7 3/8 - CT A&P without signs of hematoma - hemodynamically stable #Vertigo - acute on chronic episode, ongoing for 30 years - no hx of diuretic use for this but has tried benzos with some relief - CT/CTA head on admission unremarkable - had spinning lathe operator automatic on 01/2024; no notable correlation of symptoms with cardiac arrhythmias, offered longer duration monitor but pt declined - carotid duplex 12/2023; unremark - continue meclizine and zofran - outpatient consider transition of losartan to HCTZ #Hypoxia -> Resolved - etiology; atelectasis vs opioid use (dilaudid) - Subsegmental fibro-bronchiectasis with fibro-atelectasis in bilateral lower lobes of lungs noted on CT -> may consider pulm f/u as outpateint - now stable on room air #Hepatic Lesion - hypodense right lobe hepatic lesion with normal LFTs - f/u with outpatient US/CT #Constipation - in the setting of recent surgery/opioid use - continue miralax, add senna #HTN - continue losartan #Hx Afib - she was symptomatic and cardioverted in 2017 - no episodes of afib noted so far this hospital stay #Hx DVTs #Hx factor V leiden - anticoag as noted below VTE prophylaxis: home xarelto Diet: regular diet as tolerated Admission and Anticipated Discharge Date Admission Date: May 01, 2024 Supervising Physician Co-Signing Physician Notes Any exceptions will be noted below Patient was seen and examined independently I discussed the case with Sourav Leone PGY3 I reviewed pertinent past medical social family history and also the plan of care and agree with the plan of care. Patient continuing to require pain medicine. Will place patient on scheduled tylenol and continue as needed opiates. Now on oral opiates. Patient 's pain appears controlled. Also had BM yesterday. Card exam is regular lungs are clear leg was shortened and externally rotated capillary refills intact Mechanical fall with left femur fracture s/p intramedullary reynold, parenteral pain control Acute blood loss anemia.hemoglobin stable, will continue dvt prophylaxis. reviewed ct scan, noactive bleeding Intractable recurrent vertigo, h/o meningioma, no current symptoms. continue meclizine as outpt Any exceptions will be noted below Subjective Pt seen at bedside this morning, no events overnight. Pain controlled with current regimen. BM yesterday. Review of Systems Review of Systems: As per above Physical Exam Physical Exam: Constitutional: well-appearing, no acute distress HEENT: NCAT, no conjunctival injection CV: regular rhythm, no murmur appreciated, extremities well-perfused, no LE edema Resp: CTABL, no wheezes/rales/rhonchi appreciated, no increased work of breathing GI: soft, nondistended, nontender MSK: no gross deformities appreciated Skin: warm, dry, no rash appreciated Neuro: alert, oriented, no focal neurologic deficit appreciated Results & Data Results & Data Vital Signs (Past 12 Hours) Vital Signs Temp Pulse Pulse Resp BP Pulse Ox O2 Del Method 05/07/24 08:10 Room Air 05/07/24 08:05 36.9 C 83 16 145/79 H 95 Room Air 05/07/24 07:00 88 03/09/25 04:35 36.5 C 76 16 118/66 93 Room Air 05/06/24 22:35 36.9 C 66 16 109/67 96 Room Air Resident Activity Tracking Resident Involvement: Resident Care Provided Care Provided: Adult Hospital Medicine
[2024-05-07 12:11] LABS: Hematocrit (blood only) 28.9 % (37.0-47.0); Hemoglobin 9.2 g/dl (12.0-16.0)
[2024-05-07] MEDS: oxyCODONE HCL IR 5 MG TAB (IMMEDIATE RELEASE) PO PRN (21:14)
[2024-05-08] MEDS: HYDROmorphone INJ 0.5 MG/0.5 ML SYR IV STA (03:14)
[2024-05-08 07:59] LABS: Basophils # (auto) 0.03 K/uL (0.00-0.20); Basophils % (auto) 0.6 %; Eosinophils # (auto) 0.09 K/uL (0.00-0.50); Eosinophils % (auto) 1.7 %; Hematocrit (blood only) 27.4 % (37.0-47.0); Hemoglobin 8.6 g/dl (12.0-16.0); Immature Granulocytes # (auto) 0.03 K/uL (0.01-0.20); Immature Granulocytes % (auto) 0.6 %; Lymphocytes # (auto) 1.45 K/uL (1.20-3.40); Lymphocytes % (auto) 27.7 %; Mean Corpuscular Hemoglobin 27.7 pg (25.0-34.0); Mean Corpuscular Hgb Conc 31.4 g/dL (32.0-36.0); Mean Corpuscular Volume 88.4 fL (80.0-100.0); Mean Platelet Volume 9.6 fL (9.4-12.4); Monocytes # (auto) 0.69 K/uL (0.11-0.59); Monocytes % (auto) 13.2 %; Neutrophils # (auto) 2.95 K/uL (1.40-6.50); Neutrophils % (auto) 56.2 %; Platelet Count 247 K/uL (130-400); RDW Coefficient of Variation 14.3 % (11.5-14.5); RDW Standard Deviation 45.4 fL (36.4-46.3); White Blood Count 5.24 K/ul (4.8-10.8)
[2024-05-08] MEDS: ONDANSETRON 4 MG OD TAB PO PRN (08:05)
--- NOTE | 2024-05-08 11:33 | Billing Data ---
Date of Service May 07, 2024 Coding Level of Care Code 48775 SUB INP/OBS CARE MIN
--- NOTE | 2024-05-11 08:46 | Discharge Summary ---
Discharge Summary Date of Service May 08, 2024 Principal Dx & Hospital Course #1 = Principal Diagnosis (1) Fracture in accidental fall: (2) Paroxysmal atrial fibrillation: (3) Factor V Leiden: (4) Recurrent deep vein thrombosis (DVT): (5) Hypertension: (6) Anemia: Plan Pt is a 78 yo female with a past medical history of chronic episodic vertigo with L sided tinnitus and hearing loss, hx meningioma s/p [id number] years ago, paroxysmal afib s/p ablation in 2017and HTN who presents to the hospital on 05/01 for acute on chronic vertigo who fell off the toilet when into the ED and sustained a L sided femur fracture now s/p Left IM nail 05/02 waiting for rehab bed. 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, pt already on vitamin D, vit D level 58 wnl, TSH 1.26 - ortho consulted; surgery done for L hip fracture on 05/02, POD#4 today - to optimize pain control today; scheduled po tylenol with oxycodone 5mg pain 6-8 prn, 10mg pain 9-10 - PT/OT consulted; rehab at discharge-> medically stable for rehab #Acute Blood Loss Anemia - in the setting of recent surgery - Hgb downtrending from 13 on admission to 8.7 3/8 - CT A&P without signs of hematoma - hemodynamically stable #Vertigo - acute on chronic episode, ongoing for 30 years - no hx of diuretic use for this but has tried benzos with some relief - CT/CTA head on admission unremarkable - had cardiac cath rn on 01/2024; no notable correlation of symptoms with cardiac arrhythmias, offered longer duration monitor but pt declined - carotid duplex 12/2023; unremark - continue meclizine and zofran - outpatient consider transition of losartan to HCTZ #Hypoxia -> Resolved - etiology; atelectasis vs opioid use (dilaudid) - Subsegmental fibro-bronchiectasis with fibro-atelectasis in bilateral lower lobes of lungs noted on CT -> may consider pulm f/u as outpateint - now stable on room air #Hepatic Lesion - hypodense right lobe hepatic lesion with normal LFTs - f/u with outpatient US/CT #Constipation - in the setting of recent surgery/opioid use - continue miralax, add senna #HTN - continue losartan #Hx Afib - she was symptomatic and cardioverted in 2017 - no episodes of afib noted so far this hospital stay #Hx DVTs #Hx factor V leiden - anticoag as noted below Admission HPI Per Admitting Provider Pt is a 78 yo female with a past medical history of chronic episodic vertigo with L sided tinnitus and hearing loss, hx meningioma s/p [id number] years ago, paroxysmal afib s/p ablation in 2017and HTN who presents to the hospital on 05/01 for acute on chronic vertigo who fell off the toilet when into the ED and sustained a L sided femur fracture. Pt states that initially she came in for worsening of her vertigo. Yesterday she felt her vertigo worsen with constant room spinning all day which is a bit better this morning but she came in for further eval. She states she has had vertigo for about 30 years at this point, initially happening once every few years but has increasingly over time become more frequent, now with an episode a week at least. She states that about 10 years ago she had surgery for a L sided meningioma removal but symptoms started before that and persisted after. She states that she has had vestibular testing and evaluations by numerous doctors with no answers. She states she saw a specialist in [facility] who treated a friend of hers with a surgery for menieres disease but states she does not have menieres. states that she may have symptoms more on days that she does not eat/drink much and when she vomits with these episodes she never vomits anything up. She has not passed on with these episodes. No recent URI illnesses. At home she takes meclizine, which initially years ago did help a lot but now, although it helps, it does not help as much and she can still have an episode and vomit despite meclizine and zofran. She was very recently started back on a benzo and did state that she took it twice recently and it did seem to resolve symptoms. She has near constant L sided tinnitus and hearing loss. In regards to the episode in the ER; she states she walked to the bathroom and felt fine but tried to sit down fast and states there was water or something on the toilet seat that made it slippery and so she slipped off of it and fell to her L side. She states right now if not moving she has minimal pain but with movement of the L leg the pain is excruciating. She has some L lateral chest pain at the mid thoracics mid axillary line as well. She did not pass out during the episode. No chest pain or SOB. Discharge Exam Constitutional WD/WN, vitals as above Cardiovascular RRR, no murmur, no edema Discharge Plan Discharge Items Patient Disposition: Transfer Inpatient Rehab Fac Reason For Visit: VERTIGO, FALL WITH FRACTURE Discharge Diagnosis: IM Nail Fixation of Left Intertrochanteric hip fracture Activity: Per Instructions section Weightbearing: Full weightbearing Non-emergency contact: Primary Care Provider Call non-emergency contact if: you have any medication questions, your symptoms worsen and your pain is not controlled Follow-up/Referrals: Juan Valente MD [Physician] - (Orthopedic follow-up 2-3 weeks from surgery date.) Meera Lee DO [Primary Care Provider] - Diet: Regular Addtl Attending Provider Instructions: May fully weightbear as tolerated. Routine wound care to incision sites. Remove dressing for hygiene/shower. Replace with dry dressing daily. Patient requires about 15-25 mg of oxycodone a day. Pending Studies at Discharge: No Stand-Alone Forms: [facility] [employer] Skilled Items Patient informed of condition?: Yes DNR: No Discharge Level of Care: Acute rehab Communicable Disease: No Discharge Prognosis: Stable Lines: None Urinary Catheter: No Medications and DC Order Prescriptions: New cyclobenzaprine 5 mg Tablet 5 mg PO Q6H PRN (Reason: muscle spasm) Qty: 7 0RF oxycodone 5 mg Tablet 5 mg PO Q6H PRN (Reason: moderate pain (scale score 5-6)) Qty: 5 0RF oxycodone 5 mg Tablet 10 mg PO Q6H PRN (Reason: severe pain (scale score 7-10)) Qty: 5 0RF sennosides [Senokot] 8.6 mg Tablet 17.2 mg PO DAILY Qty: 0 0RF acetaminophen 325 mg Tablet 650 mg PO QID Qty: 0 0RF Continued atorvastatin 20 mg tablet 20 mg PO UD Rx Instructions: original 20 mg po daily. Last filled 01/22/24 for 40 mg po daily 90 day supply Ultra CoQ10 75 mg capsule 75 mg PO DAILY Rx Instructions: otc unable to verify cholecalciferol (vitamin D3) 10 mcg (400 unit) capsule 10 mcg PO DAILY Rx Instructions: otc unable to verify mecobalamin (vitamin B12) 1,000 mcg lozenge 1,000 mcg PO DAILY Rx Instructions: OTC unable to verify allow to dissolve in mouth OR may chew lightly before swallowing albuterol sulfate 90 mcg/actuation HFA aerosol inhaler 2 puff inhalation Q6H PRN (Reason: sob) Rx Instructions: no fill history available unable to verify lorazepam 0.5 mg tablet 0.5 mg PO UD PRN (Reason: Other) Rx Instructions: 0.5 mg po daily prn. No fill history available diazepam 5 mg tablet 5 mg PO BID PRN (Reason: Vertigo) losartan 25 mg tablet 25 mg PO UD Rx Instructions: 25 mg po daily. Last filled 01/21 90 day supply Xarelto 20 mg tablet 20 mg PO DAILY Rx Instructions: must administer with evening meal omeprazole 20 mg capsule,delayed release(DR/EC) 20 mg PO DAILY zinc acetate 50 mg (zinc) capsule 50 mg PO DAILY Rx Instructions: otc unable to verify meclizine 12.5 mg tablet 12.5 mg PO TID PRN (Reason: dizziness) Qty: 20 0RF ondansetron 4 mg tablet,disintegrating 4 mg PO Q8H PRN (Reason: nausea and vomiting) Qty: 30 0RF Discharge Orders: Discharge Order (Routine); Ordered 05/08/24 Ordered By: Luis Reyes Admission Data Admit Date/Time: 05/01/24 17:05 Attending Provider: Luis Reyes Admit Provider: Alina Segovia Primary Care Provider: Meera Lee Other Providers: [facility]; [facility] Stay Data Consultations 05/01/24 17:23 Consult Orthopedic Surgery Routine 05/01/24 17:24 ED Decision to Admit Stat Procedures Performed Operation Date: 05/02/24 08:20 Actual Procedures p Left IM Nail(Left) - Juan Valente MD Diagnostic Imagining Performed 05/01/24 12:16 CT angio head w con Stat CT angio neck with con Stat CT head/brain wo con Stat 05/02/24 09:00 FL hip LT 2-3V Routine 05/05/24 23:25 CT Abd and Pelvis [CT abd pelvis wo con] Urgent Pending Results Patient Have Any Pending Studies at Discharge: No Discharge Instructions Given to Patient (Per Discharging Provider) May fully weightbear as tolerated. Routine wound care to incision sites. Remove dressing for hygiene/shower. Replace with dry dressing daily. Patient requires about 15-25 mg of oxycodone a day. Total Time Total Time Spent Total Time Spent (In Minutes): 32 Coding Level of Care Code 26218 INP/OBS DISCH >30 MIN Diagnoses Fracture in accidental fall T14.8XXA; W19.XXXA Paroxysmal atrial fibrillation I48.0 Factor V Leiden D68.51 Recurrent deep vein thrombosis (DVT) I82.409 Hypertension I10 Anemia D64.9
== END 2024-05-08 14:22 | DRG 481 ==
LOC: SUATTDRO → ED 09:42 → EDINP 17:05 → SUATTDRO 17:05 → 2W 20:17